=== PATIENT | female | born 1980 | race Caucasian/White ===

== ENCOUNTER 2018-05-04 14:28 | Inpatient (IN) ==
[2018-05-04] MEDS ORDERED: Vancomycin Inj 1,000 MG in Sodium Chlor 0.9% Inj 250 ML IV.SIG ONE (15:39)
[2018-05-04] MEDS ORDERED: Ampicillin/Sulbactam Inj 3 GM in Sodium Chloride 0.9% Inj 100 ML IV.SIG ONE (15:39)
[2018-05-04] MEDS ORDERED: Morphine Sulfate Inj 2 MG/ML Vial IV.PUSH ONE (15:39)
[2018-05-04 16:17] LABS: Baso # (Auto) 0.3 th/mm3 (0.0-0.2); Baso % (Auto) 2.6 % (0.0-2.0); Eos # (Auto) 0.2 th/mm3 (0.0-0.4); Eos % (Auto) 1.4 % (0.0-4.0); Hematocrit 42.3 % (35.0-46.0); Hemoglobin 13.9 gm/dL (11.6-15.3); Lymph % (Auto) 27.5 % (9.0-44.0); Mean Corpuscular Hemoglobin 29.4 pg (27.0-34.0); Mean Corpuscular Volume 89.3 fL (80.0-100.0); Mean Platelet Volume 8.3 fL (7.0-11.0); Mono # (Auto) 0.4 th/mm3 (0.0-0.9); Mono % (Auto) 3.3 % (0.0-8.0); Neut # (Auto) 6.9 th/mm3 (1.8-7.7); Neut % (Auto) 65.2 % (16.0-70.0); Platelet Count 334 th/mm3 (150-450); Red Blood Count 4.74 mil/mm3 (4.00-5.30); Red Cell Distribution Width 13.7 % (11.6-17.2); White Blood Count 10.8 th/mm3 (4.0-11.0)
[2018-05-04 16:21] LABS: Chloride 104 meq/L (98-107); Sodium 137 meq/L (136-145)
[2018-05-04 16:24] LABS: Albumin 2.9 g/dL (3.4-5.0); Anion Gap 6 meq/L (5-15); Blood Urea Nitrogen 5 mg/dL (7-18); Calcium 8.3 mg/dL (8.5-10.1); Carbon Dioxide 27.5 meq/L (21.0-32.0); Glucose,Random 84 mg/dL (74-106)
[2018-05-04 16:27] LABS: Alanine Aminotransferase 13 U/L (10-53); Aspartate Aminotransferase 20 U/L (15-37)
[2018-05-04 16:28] LABS: Glomerular Filtration Rate Greater Than 89 mL/min (>89)
[2018-05-04 16:29] LABS: Total Protein 7.6 g/dL (6.4-8.2)
[2018-05-04 16:30] LABS: Alkaline Phosphatase 110 U/L (45-117)
[2018-05-04 16:59] LABS: Platelet Estimate Normal (Normal); Platelet Morphology Normal (Normal)
--- NOTE | 2018-05-04 17:02 | CT ---
EXAM DATE: 05/04/2018 4:49 PM EST AGE/SEX: 37 years / Female INDICATIONS: Dog bite to left wrist area with redness, pain and swelling up arm. CLINICAL DATA: This is the patient's initial encounter. Patient reports that signs and symptoms have been present for 3 days and indicates a pain score of 8/10. MEDICAL/SURGICAL HISTORY: None. Cholecystectomy. Back surgery. RADIATION DOSE: 12.38 CTDI (mGy) COMPARISON: [facility] [place], HAND LEFT COMPLETE ([id number]), 01/29/2013. . TECHNIQUE: Multiple contiguous axial images were acquired using a multirow detector CT scanner after intravenous administration of 95 ml Omnipaque 350 (iohexol) nonionic water-soluble contrast as a si ngle exam dose. . Multiplanar reconstruction was performed in the sagittal and coronal planes. Usin g automated exposure control and adjustment of the mA and/or kV according to patient size, radiation dose was kept as low as reasonably achievable to obtain optimal diagnostic quality images. DICOM for mat image data is available electronically for review and comparison. FINDINGS: Bones: Focal lucent defects are noted involving the distal radius which likely represent defects from previous hardware. If the patient has had no previous hardware in the radius these could represent p ost-traumatic defects. The bony structures about the wrist are in normal alignment. The distal radiu s, distal ulna and carpus are intact. No fracture is seen. Joints: No significant arthropathy or bony hypertrophy is seen. Soft Tissues: Diffuse soft tissue swelling is noted along the dorsum of the left wrist. No deep soft tissue abscess is noted. No radiopaque foreign body is noted. Other: No foreign bodies seen. Post Contrast: No abnormal areas of enhancement are seen in the marrow or soft tissues. CONCLUSION: 1. Diffuse soft tissue swelling along the dorsum of the left wrist suggesting cellulitis. No underl hong deep soft tissue abscess is noted. 2. Focal lucent defects are noted involving the distal radius which likely represent defects from pr evious hardware. If the patient has had no previous hardware in the radius these could represent post -traumatic defects. Electronically signed by: Jose Joseph MD Board Certified Radiologist 05/04/2018 5:01 PM EST
--- NOTE | 2018-05-04 17:21 | ED ---
HPI General Chief complaint: Animal Bite Stated complaint: Dog Bite Time Seen by Provider: 05/04/18 15:00 Source: patient Mode of arrival: ambulatory Limitations: no limitations History of Present Illness HPI narrative: Patient is a 37 year old female who comes in complaining of pain and swelling to her left wrist and arm after a dog bite. She says she was breaking up a fight between her two dogs over a bone when they bit her. This happened about 4 days ago. She says since then her wrist has become more swollen and painful. She has taken Ibuprofen for pain without relief. She says that she normally takes "Lortab and Oxycodone for pain" but has not been to her doctor this month for a refill of her medications. She denies fever or chills. She has severe pain with movement of her wrist. Severity is moderate. Related Data Home Medications Medication Instructions Recorded Confirmed hydrocodone-acetaminophen 2 tab PO Q6-8H PRN 05/04/18 05/04/18 oxycodone 10 mg PO Q4-6H PRN 05/04/18 05/04/18 Allergies Allergy/AdvReac Type Severity Reaction Status Date / Time No Known Allergies Allergy Verified 05/04/18 14:42 Review of Systems ROS: all other systems reviewed are negative Constitutional Denies chills and Denies fever(s) ENT Denies dizziness Cardiovascular Denies chest pain Respiratory Denies dyspnea Gastrointestinal Denies nausea and Denies vomiting Musculoskeletal Reports arthralgias Integumentary/Breasts Reports change in pigmentation and Reports wounds Neurologic Denies focal weakness and Denies numbness [facility] Medical History Medical History Chronic pain (Acute) Depression (Acute) Surgical History Surgical History History of back surgery (Acute) Hx of cholecystectomy (Acute) Social History Social History Substance History: No History of Abuse Second Hand Smoke Exposure: Yes Smoking Status: Current every day smoker Tobacco Type: Cigarettes How Often Do You Have a Drink Containing Alcohol: Monthly or less Recent Travel in [facility] within the Last 8 Weeks: No Recent Out of Country Travel within the Last 8 Weeks: No Immunization History Tetanus Immunization: <5 Years Exam Narrative Exam Narrative: GENERAL: Awake and alert, in no acute distress. SKIN: Erythema extending circumferentially from the mid hand to the mid- forearm. There are several wounds near the wrist. No defined abscess. HEAD: Atraumatic. Normocephalic. EYES: Pupils equal and round. No scleral icterus. No injection or drainage. ENT: No nasal bleeding or discharge. Mucous membranes pink and moist. NECK: Trachea midline. No JVD. CARDIOVASCULAR: Regular rate and rhythm. No murmur appreciated. RESPIRATORY: No accessory muscle use. Clear to auscultation. Breath sounds equal bilaterally. MUSCULOSKELETAL: No obvious deformities. No clubbing. No cyanosis. No edema. NEUROLOGICAL: Awake and alert. No obvious cranial nerve deficits. Motor grossly within normal limits. Normal speech. PSYCHIATRIC: Appropriate mood and affect; insight and judgment normal. Course Initial Documented Vital Signs Temperature 97.5 F L 05/04/18 14:39 Pulse Rate 89 05/04/18 14:39 Respiratory Rate 16 05/04/18 14:39 Blood Pressure 114/72 05/04/18 14:39 Pulse Oximetry 98 05/04/18 14:39 Last Documented Vital Signs Temperature 97.5 F L 05/04/18 14:39 Pulse Rate 84 05/04/18 16:44 Respiratory Rate 18 05/04/18 16:44 Blood Pressure 118/64 05/04/18 16:44 Pulse Oximetry 98 05/04/18 16:44 Medical Decision Making [facility] Narrative Medical decision making narrative: Patient is a 37-year-old female who comes in complaining of pain and swelling to her left from a dog bite. Exam shows circumferential swelling and erythema from the mid hand to the mid forearm. IV established, labs sent. CT performed shows extensive soft tissue swelling and cellulitis, no defined abscess. Patient given vancomycin and Unasyn. Given pain medicine. I feel she would benefit from observation to ensure improvement of her symptoms. Medical Screen Exam Complete: Yes Emergency Medical Condition: Yes Differential Diagnosis Differential Diagnosis: Cellulitis versus abscess versus sepsis Medical Records Medical records reviewed: Yes I reviewed the patient's medical records. Lab Data Lab results reviewed: Yes I reviewed the patient's lab results. Result diagrams: 05/04/18 15:50 05/04/18 15:50 POC Results POC Urine Results Negative Lab Results 05/04/18 05/04/18 Range/Units 15:50 15:50 CBC w Diff Slide review pending WBC 10.8 (4.0-11.0) th/mm3 RBC 4.74 (4.00-5.30) mil/mm3 Hgb 13.9 (11.6-15.3) gm/dL Hct 42.3 (35.0-46.0) % MCV 89.3 (80.0-100.0) fL MCH 29.4 (27.0-34.0) pg MCHC 33.0 (32.0-36.0) % RDW 13.7 (11.6-17.2) % Plt Count 334 (150-450) th/mm3 MPV 8.3 (7.0-11.0) fL Neut % (Auto) 65.2 (16.0-70.0) % Lymph % (Auto) 27.5 (9.0-44.0) % Burt % (Auto) 3.3 (0.0-8.0) % Eos % (Auto) 1.4 (0.0-4.0) % Baso % (Auto) 2.6 H (0.0-2.0) % Neut # (Auto) 6.9 (1.8-7.7) th/mm3 Lymph # (Auto) 3.0 (1.0-4.8) th/mm3 Burt # (Auto) 0.4 (0.0-0.9) th/mm3 Eos # (Auto) 0.2 (0.0-0.4) th/mm3 Baso # (Auto) 0.3 H (0.0-0.2) th/mm3 WBC Differential . Diff Scan Auto diff confirmed Differential Comment . Platelet Estimate Normal (Normal) Platelet Morphology Normal (Normal) Sodium 137 (136-145) meq/L Potassium 4.0 (3.5-5.1) meq/L Chloride 104 (98-107) meq/L Carbon Dioxide 27.5 (21.0-32.0) meq/L Anion Gap 6 (5-15) meq/L BUN 5 L (7-18) mg/dL Creatinine 0.72 (0.50-1.00) mg/dL Estimated GFR Greater than 89 (>89) mL/min Random Glucose 84 (74-106) mg/dL Calcium 8.3 L (8.5-10.1) mg/dL Total Bilirubin 0.4 (0.2-1.0) mg/dL AST 20 (15-37) U/L ALT 13 (10-53) U/L Alkaline Phosphatase 110 (45-117) U/L Total Protein 7.6 (6.4-8.2) g/dL Albumin 2.9 L (3.4-5.0) g/dL Imaging Data Radiologist's impression: Wrist CT 05/04/18 15:39 CONCLUSION: 1. Diffuse soft tissue swelling along the dorsum of the left wrist suggesting cellulitis. No underlying deep soft tissue abscess is noted. 2. Focal lucent defects are noted involving the distal radius which likely represent defects from previous hardware. If the patient has had no previous hardware in the radius these could represent post-traumatic defects. Discharge Plan Discharge Disposition Patient Disposition: ED Admit(ED Internal Use Only) Discharge Condition Condition: Stable Discharge Details Diagnosis: Cellulitis Physicians Team ED Provider: Kira Hightower Primary Care Provider: NON STAFF,PROVIDER Rxs /Orders / Referrals /Forms Prescriptions: No Action hydrocodone-acetaminophen 10-325 mg Tablet 2 tab PO Q6-8H PRN (Reason: Pain) RF: 0 oxycodone 10 mg Tablet 10 mg PO Q4-6H PRN (Reason: Pain) RF: 0 Discharge Interventions Interventions: Vital Signs Last Done: 05/04/18 16:44 Status ED Status: With Doctor
[2018-05-04] MEDS ORDERED: Bisacodyl 10 MG Supp RECTAL PRN (17:43)
[2018-05-04] MEDS ORDERED: Acetaminophen 325 MG Tablet PO PRN (17:43)
[2018-05-04] MEDS ORDERED: Naloxone Inj 0.4 MG/ML Vial IV.PUSH PRN (17:55)
--- NOTE | 2018-05-04 18:05 | P.HPIM ---
History of Present Illness Primary Care Physician: PROVIDER NON STAFF Chief Complaint: Lt forearm/hand swelling after dog bite History of Present Illness: 37 yo F with h/o previous back surgery who presented with lt hand/forearm swelling and redness after dog bite that happened 4 days ago. Patient was her dogs who were fighting and one of them bit her on the left forearm and leg. She did not seek medical attention because she was trying to control her pain at home. She noted increasing redness in the lt forearm and hand.Also reports excruciating pain, as such she cannot put her arm down. Has been having fever and chills as well. Her left leg also suffered a bite, but not deep and is minimally swollen. Her dogs are all up to date with vaccinations. ROS is negative except as stated above. On presentation to ER,patient had stable vitals, labs unremarkable, CT of left arm noted cellulitis without abscess formation. Patient received Vanc/Unaysn, Hydrocodone and Morphine. Patient was still c/o of pain at the time of this clinical evaluation. Review of Systems Review of Systems: all other systems reviewed are negative [facility] Medical History Medical History Chronic pain (Acute) Depression (Acute) Surgical History Surgical History History of back surgery (Acute) Hx of cholecystectomy (Acute) Social History Social History Substance History: No History of Abuse Second Hand Smoke Exposure: Yes Smoking Status: Current every day smoker Tobacco Type: Cigarettes How Often Do You Have a Drink Containing Alcohol: Monthly or less Recent Travel in [facility] within the Last 8 Weeks: No Recent Out of Country Travel within the Last 8 Weeks: No Immunization History Tetanus Immunization: <5 Years Medications and Allergies Allergies Allergy/AdvReac Type Severity Reaction Status Date / Time No Known Allergies Allergy Verified 05/04/18 14:42 Home Medications Medication Instructions Recorded Confirmed Type hydrocodone-acetaminophen 2 tab PO Q6-8H PRN 05/04/18 05/04/18 History oxycodone 10 mg PO Q4-6H PRN 05/04/18 05/04/18 History Active Medications: Active Medications Acetaminophen (Tylenol) 650 mg PO Q4H PRN PRN Reason: Temp > 100.4 Al Hydroxide/Mg Hydroxide (Milk Of Magnesia Liq) 30 ml PO Q12H PRN PRN Reason: Mild Constipation Bisacodyl (Dulcolax Supp) 10 mg RECTAL DAILY PRN PRN Reason: SEVERE CONSITIPATION Lactulose (Lactulose Liq) 30 ml PO DAILY PRN PRN Reason: SEVERE CONSITIPATION Ondansetron HCl (Zofran Inj) 4 mg IV.PUSH Q6H PRN PRN Reason: NAUSEA OR VOMITING Senna/Docusate Sodium (Katy-Colace) 1 tab PO BID VARUN Sennosides (Senokot) 17.2 mg PO Q12H PRN PRN Reason: Moderate Constipation Sodium Chloride (Ns Flush) 2 ml IV.FLUSH BID VARUN Sodium Chloride (Ns Flush) 2 ml IV.FLUSH PRN PRN PRN Reason: FLUSH AFTER USING IV ACCESS Physical Exam Vital signs: Last Vital Signs Temp 97.5 F L 05/04/18 14:39 Pulse 84 05/04/18 16:44 Resp 18 05/04/18 16:44 BP 118/64 05/04/18 16:44 Pulse Ox 98 05/04/18 16:44 Intake & Output 05/02/18 05/03/18 05/04/18 05/05/18 06:59 06:59 06:59 06:59 Weight 80.6 kg Narrative: GENERAL: This is a well-nourished, well-developed patient, in no apparent distress. HEENT:not pale,anicteric CARDIOVASCULAR: Regular rate and rhythm without murmurs, gallops, or rubs. RESPIRATORY: Clear to auscultation. Breath sounds equal bilaterally. No wheezes , rales, or rhonchi. GASTROINTESTINAL: Abdomen soft, non-tender, nondistended. Normal active bowel sounds MUSCULOSKELETAL: Extremities without clubbing, cyanosis, or edema. Lt arm and hand with swelling and erythema extending to mid forearm, bite farah noted on forearm, tenderness to palpation. limited ROM due to pain. minimal lt leg edema , bite dinorah noted on rios. left leg non tender. NEURO: Alert & Oriented x4 to person, place, time, situation. Moves all ext x4 Results Labs CBC & Chem 7: 05/04/18 15:50 05/04/18 15:[address] 05/04/18 15:39 CONCLUSION: 1. Diffuse soft tissue swelling along the dorsum of the left wrist suggesting cellulitis. No underlying deep soft tissue abscess is noted. 2. Focal lucent defects are noted involving the distal radius which likely represent defects from previous hardware. If the patient has had no previous hardware in the radius these could represent post-traumatic defects. Caprini VTE Risk Assessment Caprini VTE Risk Assessment: No/Low Risk (score <= 1) Caprini Risk Assessment Model: Point Value = 1 Point Value = 2 Point Value = 3 Point Value = 5 Age 41-60 Minor surgery BMI > 25 kg/m2 Swollen legs Varicose veins or History of unexplained or recurrent spontaneous Oral contraceptives or hormone replacement Sepsis (< 1 month) Serious lung disease, including pneumonia (< 1 month) Abnormal pulmonary function Acute myocardial infarction Congestive heart failure (< 1 month) History of inflammatory bowel disease Medical patient at bed rest Age 61-74 Arthroscopic surgery Major open surgery (> 45 min) Laparoscopic surgery (> 45 min) Malignancy Confined to bed (> 72 hours) Immobilizing plaster cast Central venous access Age >= 75 History of VTE Family history of VTE Factor V Leiden Prothrombin [id number] Lupus anticoagulant Anticardiolipin antibodies Elevated serum homocysteine Heparin-induced thrombocytopenia Other congenital or acquired thrombophilia Stroke (< 1 month) Elective arthroplasty Hip, pelvis, or leg fracture Acute spinal cord injury (< 1 month) Prophylaxis Regimen: Total Risk Factor Score Risk Level Prophylaxis Regimen 0-1 Low Early ambulation 2 Moderate Order ONE of the following: *Sequential Compression Device (SCD) *Heparin 5000 units SQ BID 3-4 Higher Order ONE of the following medications: *Heparin 5000 units SQ TID *Enoxaparin/Lovenox 40 mg SQ daily (WT < 150 kg, CrCl > 30 mL/min) *Enoxaparin/Lovenox 30 mg SQ daily (WT < 150 kg, CrCl > 10-29 mL/min) *Enoxaparin/Lovenox 30 mg SQ BID (WT < 150 kg, CrCl > 30 mL/min) AND/OR *Sequential Compression Device (SCD) 5 or more Highest Order ONE of the following medications: *Heparin 5000 units SQ TID (Preferred with Epidurals) *Enoxaparin/Lovenox 40 mg SQ daily (WT < 150 kg, CrCl > 30 mL/min) *Enoxaparin/Lovenox 30 mg SQ daily (WT < 150 kg, CrCl > 10-29 mL/min) *Enoxaparin/Lovenox 30 mg SQ BID (WT < 150 kg, CrCl > 30 mL/min) AND *Sequential Compression Device (SCD) Assessment and Plan Plan 37 yo F with h/o previous back surgery presenting with lt forearm and hand cellulitis following a dog bite. -received Unasyn and Vanc in ER, will continue same for now. -pain control-She is on Oxycontin 30mg q12h, and Hydrocodone/ APAP 10/325mg q6h at home-this was confirmed in [facility], resume same. -Add Dilaudid 1mg prn breakthrough pain. follow up blood cultures. DVT ppx--low risk, ambulate
[2018-05-04] MEDS: HYDROmorphone PF Inj 1 MG/ML Ampul IV.PUSH PRN (20:37)
[2018-05-04] MEDS: Senna/Docusate Sodium 8.6/50 MG Tablet PO SCH (22:30)
[2018-05-04] MEDS: Ampicillin/Sulbactam Inj 3 GM in Sodium Chloride 0.9% Inj 100 ML IV.SIG SCH (23:58)
[2018-05-04] MEDS: oxyCODONE 10 MG Controlled Release Tablet PO SCH (23:59)
[2018-05-05] MEDS: HYDROmorphone PF Inj 1 MG/ML Ampul IV.PUSH PRN ×7 (04:44→23:53)
[2018-05-05] MEDS: Ampicillin/Sulbactam Inj 3 GM in Sodium Chloride 0.9% Inj 100 ML IV.SIG SCH ×3 (05:01→17:35)
[2018-05-05] MEDS: Senna/Docusate Sodium 8.6/50 MG Tablet PO SCH ×2 (08:06→20:36)
[2018-05-05] MEDS: oxyCODONE 10 MG Controlled Release Tablet PO SCH ×2 (08:06→20:36)
--- NOTE | 2018-05-05 08:53 | P.PNIM ---
Subjective Interval history: Follow-up left hand cellulitis. left hand pain about the same, no change, no overnight events, still very painful, about 9/10. No fever chills. Physical Exam Vital signs: Last Vital Signs Temp 97.3 F L 05/05/18 08:00 Pulse 70 05/05/18 08:00 Resp 18 05/05/18 08:00 BP 97/60 L 05/05/18 08:00 Pulse Ox 97 05/05/18 08:00 Intake & Output 05/03/18 05/04/18 05/05/18 05/06/18 06:59 06:59 06:59 06:59 Intake Total 550 / 550 Balance 550 / 550 Weight 83.5 kg Narrative: GENERAL: Not in distress. CARDIOVASCULAR: Regular rate and rhythm without murmurs, gallops, or rubs. RESPIRATORY: Clear to auscultation. Breath sounds equal bilaterally. No wheezes , rales, or rhonchi. GASTROINTESTINAL: Abdomen soft, non-tender, nondistended. Normal active bowel sounds MUSCULOSKELETAL: Extremities without clubbing, cyanosis, or edema. Lt arm and hand with swelling and erythema extending to mid forearm, bite farah noted on forearm, tenderness to palpation. limited ROM due to pain. minimal lt leg edema , bite dinorah noted on rios. left leg non tender. NEURO: Alert & Oriented x4 to person, place, time, situation. Moves all ext x4 Results Labs CBC & Chem 7: 05/04/18 15:50 05/04/18 15:50 Imaging Imaging: Impressions Wrist CT 05/04/18 15:39 CONCLUSION: 1. Diffuse soft tissue swelling along the dorsum of the left wrist suggesting cellulitis. No underlying deep soft tissue abscess is noted. 2. Focal lucent defects are noted involving the distal radius which likely represent defects from previous hardware. If the patient has had no previous hardware in the radius these could represent post-traumatic defects. Assessment and Plan Plan 37 yo F with h/o previous back surgery presenting with lt forearm and hand cellulitis following a dog bite. Left hand cellulitis secondary to dog bite-continue Unasyn and vancomycin, monitor BMP daily, continue home dose of OxyContin, [place] as needed, will add ibuprofen [id number] for swelling. -Tinea vancomycin and Unasyn (05/04-). CT scan of the wrist did not show any abscess. Blood cultures negative so far. DVT ppx--low risk, ambulate Progress Note: Quality VTE Deep Vein Thrombosis/Pulmonary Embolism Present on Admission: No
[2018-05-05] MEDS ORDERED: Vancomycin Consult Pharmacy OTHER PRN (09:48)
[2018-05-05] MEDS ORDERED: Vancomycin Inj 1,000 MG in Sodium Chlor 0.9% Inj 250 ML IV.SIG SCH (09:48)
[2018-05-05] MEDS: Ibuprofen 600 MG Tablet PO SCH (10:28)
[2018-05-05] MEDS: Vancomycin Inj 1,000 MG in Sodium Chlor 0.9% Inj 250 ML IV.SIG SCH (23:57)
[2018-05-06] MEDS: Ampicillin/Sulbactam Inj 3 GM in Sodium Chloride 0.9% Inj 100 ML IV.SIG SCH ×5 (01:13→23:09)
[2018-05-06] MEDS: HYDROmorphone PF Inj 1 MG/ML Ampul IV.PUSH PRN ×3 (02:43→08:45)
[2018-05-06 08:37] LABS: Chloride 105 meq/L (98-107); Potassium 3.4 meq/L (3.5-5.1); Sodium 141 meq/L (136-145)
[2018-05-06 08:40] LABS: Glucose,Random 98 mg/dL (74-106)
[2018-05-06 08:41] LABS: Anion Gap 6 meq/L (5-15); Blood Urea Nitrogen 7 mg/dL (7-18); Carbon Dioxide 29.7 meq/L (21.0-32.0)
[2018-05-06] MEDS: Senna/Docusate Sodium 8.6/50 MG Tablet PO SCH ×2 (08:41→20:51)
[2018-05-06] MEDS: oxyCODONE 10 MG Controlled Release Tablet PO SCH ×2 (08:41→20:49)
[2018-05-06 08:44] LABS: Glomerular Filtration Rate Greater Than 89 mL/min (>89)
--- NOTE | 2018-05-06 11:03 | P.PNIM ---
Subjective Interval history: Left hand pain still very swollen, pain is severe, about 9/10 , decreased range of motion, no fever, positive for chills. Blood pressure stable. Physical Exam Vital signs: Last Vital Signs Temp 96.4 F L 05/06/18 08:00 Pulse 67 05/06/18 08:00 Resp 15 05/06/18 08:00 BP 92/54 L 05/06/18 08:00 Pulse Ox 97 05/06/18 08:00 Intake & Output 05/04/18 05/05/18 05/06/18 05/07/18 06:59 06:59 06:59 06:59 Intake Total 550 / 550 1999 Balance 550 / 550 1999 Weight 83.5 kg Narrative: GENERAL: Not in distress. CARDIOVASCULAR: Regular rate and rhythm without murmurs, gallops, or rubs. RESPIRATORY: Clear to auscultation. Breath sounds equal bilaterally. GASTROINTESTINAL: Abdomen soft, non-tender, nondistended. Normal active bowel sounds MUSCULOSKELETAL: Extremities without clubbing, cyanosis, or edema. Lt arm and hand with swelling and erythema extending to mid forearm, bite farah noted on forearm, tenderness to palpation. limited left hand abduction, severe tenderness. NEURO: Alert & Oriented x4 to person, place, time, situation. Moves all ext x4 Results Labs CBC & Chem 7: 05/04/18 15:50 05/06/18 07:10 Labs: Microbiology 05/04/18 15:55 Blood - Peripheral Aerobic Blood Culture - Preliminary No growth in 1 day 05/04/18 15:55 Blood - Peripheral Anaerobic Blood Culture - Preliminary No growth in 1 day 05/04/18 15:50 Blood - Peripheral Aerobic Blood Culture - Preliminary No growth in 1 day 05/04/18 15:50 Blood - Peripheral Anaerobic Blood Culture - Preliminary No growth in 1 day Assessment and Plan Plan 37 yo F with h/o previous back surgery presenting with lt forearm and hand cellulitis following a dog bite. Left hand cellulitis secondary to dog bite-continue Unasyn and vancomycin, continue home dose of OxyContin, [place] as needed, ibuprofen [id number], add Dilaudid as needed orally. CT scan of the wrist did not show any abscess. No improvement with antibiotics for 48 hours, consult hand surgery. Per kalemia-replace orally, check magnesium DVT ppx--low risk, ambulate Progress Note: Quality VTE Deep Vein Thrombosis/Pulmonary Embolism Present on Admission: No
[2018-05-06] MEDS: Vancomycin Inj 1,000 MG in Sodium Chlor 0.9% Inj 250 ML IV.SIG SCH ×2 (11:43→23:08)
[2018-05-06] MEDS: Ibuprofen 600 MG Tablet PO SCH ×4 (11:43→21:42)
[2018-05-06 13:27] LABS: Baso % (Auto) 0.5 % (0.0-2.0); Eos # (Auto) 0.2 th/mm3 (0.0-0.4); Eos % (Auto) 2.6 % (0.0-4.0); Hematocrit 33.2 % (35.0-46.0); Hemoglobin 11.2 gm/dL (11.6-15.3); Lymph # (Auto) 2.8 th/mm3 (1.0-4.8); Lymph % (Auto) 36.4 % (9.0-44.0); Mean Corpuscular HGB Conc 33.8 % (32.0-36.0); Mean Corpuscular Hemoglobin 30.3 pg (27.0-34.0); Mean Corpuscular Volume 89.7 fL (80.0-100.0); Mean Platelet Volume 8.7 fL (7.0-11.0); Mono # (Auto) 0.4 th/mm3 (0.0-0.9); Mono % (Auto) 5.3 % (0.0-8.0); Neut # (Auto) 4.4 th/mm3 (1.8-7.7); Neut % (Auto) 55.2 % (16.0-70.0); Platelet Count 279 th/mm3 (150-450); White Blood Count 7.8 th/mm3 (4.0-11.0)
--- NOTE | 2018-05-06 13:58 | MB ---
cc: Kaya Diamond MD DATE: 05/06/2018 The patient is being seen at the request of Dr. Montserrat Badillo. REASON FOR CONSULTATION: Injury to left hand after a dog bite. HISTORY OF PRESENT ILLNESS: The patient is a 37-year-old female with a history of back surgery, who presented with left hand and forearm swelling and redness after a dog bite. The patient was bitten approximately 5 days ago. The 2 dogs were fighting and she them. The dog that bit her was a combination of Labrador Retriever and a Johnson. The dog grabbed her arm and did not let go at first. The patient has noted that she had been having fevers and chills. She also suffered a bite to her leg. The patient was seen in the emergency room and was admitted for intravenous antibiotics. A CT scan of the left upper extremity revealed some fractures, which may be related to the teeth from the dog on the dorsal and palmar surface of the distal radius. These are coincident with the teeth. Consultation is requested regarding evaluation and treatment of the patient's hand injury. REVIEW OF SYSTEMS: Twelve systems are reviewed and they are all negative. PAST MEDICAL HISTORY: Negative for high blood pressure, diabetes, heart disease, kidney disease, liver disease, or diseases of infectious etiology. PAST SURGICAL HISTORY: Significant for chronic pain secondary to the back surgery and depression. The patient has a history of surgical as above plus cholecystectomy. SOCIAL HISTORY: The patient smokes cigarettes every day. Does not consume significant amount of alcohol. PHYSICAL EXAMINATION: GENERAL: The patient is lying comfortably in bed. VITAL SIGNS: Temperature is 96.4, pulse is 67, respirations 15, blood pressure is 92/54, and pulse oximetry is 97 on room air. HEENT: Her extraocular muscles are intact. Pupils are equal, round, and reactive to light. Her mouth is clear. NECK: Supple without masses. LUNGS: Clear. HEART: Regular rate and rhythm. EXTREMITIES: Examination of upper extremities reveals mild swelling of her left upper extremity. There is redness over the dorsal aspect of her wrist. The palmar surface is not red or swollen. There is a scrape type bite puncture laceration approximately 1.5 cm in length dorsally as well as a puncture wound on the radial aspect of the wrist. These punctures are just proximal to the radiocarpal joint. The patient is able to supinate and pronate her wrist. She can extend and flex, although she does complain of some discomfort. The extremity from the elbow to the fingertips is tender all over. That includes the fingers, the volar and dorsal surface of the wrist and forearm. The tenderness is the same throughout. REVIEW OF THE PATIENT'S LABORATORY DATA: White count was 10.8 on admission and there was no evidence of a shift. Her chemistry showed a slightly lower potassium, but otherwise is relatively within normal limits. The wounds have not been cultured. A blood culture x2 is negative. Review of her CT scan shows 2 possible fractures into the substance of the bone and the distal radius coincident with the areas of the bites. IMPRESSION: The patient appears to have a cellulitis of her left upper extremity. She does have moderate swelling of the upper extremity. The pain does appear to be greater than the clinical picture. PLAN: The fractures within the distal radius are of concern and orthopedics should be consulted regarding further treatment. I do not feel that the patient has an infection within the wrist joint and that the injury is localized to the soft tissue as well as distal radius. MD SUZIE Hernandez/elfego , 12:59 PM , 01:11 PM
--- NOTE | 2018-05-06 13:59 | XR ---
EXAM DATE: 05/06/2018 1:52 PM EST AGE/SEX: 37 years / Female INDICATIONS: Dog bite to left wrist. Evaluate for fracture. CLINICAL DATA: This is the patient's subsequent encounter. Patient reports that signs and symptoms h ave been present for 2 days and indicates a pain score of 10/10. MEDICAL/SURGICAL HISTORY: None. None. COMPARISON: [facility] – [place], HAND LEFT COMPLETE ([id number]), 01/29/2013. . FINDINGS: There is extensive soft tissue swelling seen fistula. There is some stable subtle lucency seen at the lateral radial metaphyseal region. There appears to be a linear bony density seen projecting adjacen t to the lateral radial metaphyseal region raising possibility of fracture in this region. CONCLUSION: Possible fracture at the distal radial metaphyseal region. Extensive superficial soft tissue swelling. Electronically signed by: Mario Vasquez MD Board Certified Radiologist 05/06/2018 1:57 PM EST
[2018-05-06] MEDS ORDERED: Pharmacy Ordered Lab Info OTHER ONE (22:45)
[2018-05-06] MEDS: Duloxetine 60 MG DR Capsule PO SCH (23:36)
[2018-05-07 03:51] LABS: Vancomycin,Trough 5.1 mcg/mL (5.0-10.0)
[2018-05-07] MEDS: Ibuprofen 600 MG Tablet PO SCH ×3 (06:38→21:59)
[2018-05-07] MEDS: Ampicillin/Sulbactam Inj 3 GM in Sodium Chloride 0.9% Inj 100 ML IV.SIG SCH ×4 (06:41→23:32)
[2018-05-07 06:46] LABS: Baso # (Auto) 0.1 th/mm3 (0.0-0.2); Baso % (Auto) 0.8 % (0.0-2.0); Eos # (Auto) 0.4 th/mm3 (0.0-0.4); Hematocrit 33.6 % (35.0-46.0); Hemoglobin 11.2 gm/dL (11.6-15.3); Lymph # (Auto) 3.2 th/mm3 (1.0-4.8); Lymph % (Auto) 45.8 % (9.0-44.0); Mean Corpuscular HGB Conc 33.4 % (32.0-36.0); Mean Corpuscular Volume 89.8 fL (80.0-100.0); Mean Platelet Volume 8.4 fL (7.0-11.0); Mono # (Auto) 0.4 th/mm3 (0.0-0.9); Mono % (Auto) 5.5 % (0.0-8.0); Neut # (Auto) 2.9 th/mm3 (1.8-7.7); Neut % (Auto) 41.9 % (16.0-70.0); Platelet Count 287 th/mm3 (150-450); Red Blood Count 3.74 mil/mm3 (4.00-5.30); Red Cell Distribution Width 13.2 % (11.6-17.2)
[2018-05-07 06:57] LABS: Chloride 107 meq/L (98-107); Potassium 3.9 meq/L (3.5-5.1); Sodium 141 meq/L (136-145)
[2018-05-07 07:02] LABS: Calcium 8.4 mg/dL (8.5-10.1)
[2018-05-07 07:03] LABS: Anion Gap 5 meq/L (5-15); Blood Urea Nitrogen 7 mg/dL (7-18); Carbon Dioxide 29.5 meq/L (21.0-32.0); Glucose,Random 96 mg/dL (74-106)
[2018-05-07 07:06] LABS: Glomerular Filtration Rate Greater Than 89 mL/min (>89)
[2018-05-07] MEDS ORDERED: LORazepam 1 MG Tablet PO ONE (08:15)
[2018-05-07] MEDS: Duloxetine 60 MG DR Capsule PO SCH (08:18)
[2018-05-07] MEDS: Senna/Docusate Sodium 8.6/50 MG Tablet PO SCH ×2 (08:18→21:59)
[2018-05-07] MEDS: oxyCODONE 10 MG Controlled Release Tablet PO SCH ×2 (08:19→21:59)
--- NOTE | 2018-05-07 08:29 | P.PNIM ---
Subjective Interval history: Patient reports the pain is controlled. Denies any chest pain or shortness of breath. Denies nausea or vomiting. Physical Exam Vital signs: Vital Signs 05/06/18 12:00 05/06/18 13:11 05/06/18 16:00 Temperature 97.7 F 96.6 F L Pulse Rate 91 H 111 H Respiratory Rate 16 4 L 16 Blood Pressure 118/56 L 100/58 L Pulse Oximetry 100 100 05/06/18 20:00 05/06/18 21:20 05/06/18 22:15 Temperature 96.9 F L Pulse Rate 78 Respiratory Rate 20 9 L 18 Blood Pressure 103/55 L Pulse Oximetry 97 05/07/18 02:00 05/07/18 02:30 05/07/18 03:10 Temperature 97.1 F L Pulse Rate 77 Respiratory Rate 16 20 Blood Pressure 89/53 L 101/64 Pulse Oximetry 96 05/07/18 07:07 05/07/18 07:08 05/07/18 07:45 Temperature Pulse Rate Respiratory Rate 18 18 18 Blood Pressure Pulse Oximetry Intake & Output 05/06/18 05/07/18 05/07/18 18:59 06:59 18:59 Intake Total 1909 / 1909 480 / 480 Balance 1909 480 / 480 Weight 83.5 kg 83.4 kg Intake: IV 350 / 350 Unasyn Inj 3 GM In NS Inj 100 100 / 100 ML @ 200 mls/hr IV.SIG Q6H VARUN Rx#:[id number] Vancomycin Inj 1,000 MG In NS 250 / 250 Inj 250 ML @ 250 mls/hr IV.SIG Q12H VARUN Rx#:[id number] Oral 1560 / 1560 480 / 480 Other: # Voids 5 3 Date of Last Bowel Movement 05/04/18 # Bowel Movements 0 Narrative: GENERAL: lying in bed.. Appears comfortable. SKIN: Warm and dry. HEAD: Normocephalic. EYES: No scleral icterus. No injection or drainage. NECK: Supple, trachea midline. No JVD or lymphadenopathy. CARDIOVASCULAR: Regular rate and rhythm without murmurs, gallops, or rubs. RESPIRATORY: Breath sounds equal bilaterally. No accessory muscle use. GASTROINTESTINAL: Abdomen soft, non-tender, nondistended. MUSCULOSKELETAL: No cyanosis, or edema. Left wrist dressed with dressing clean dry and intact. Erythema not extending beyond dressing. BACK: Nontender without obvious deformity. No CVA tenderness. Results - Labs CBC & Chem 7: 05/07/18 06:06 05/07/18 06:06 Laboratory Results - last 24 hr 05/06/18 05/06/18 05/06/18 07:10 07:10 22:30 CBC w Diff Auto diff final WBC 7.8 RBC 3.70 L Hgb 11.2 L D Hct 33.2 L MCV 89.7 MCH 30.3 MCHC 33.8 RDW 13.0 Plt Count 279 MPV 8.7 Neut % (Auto) 55.2 Lymph % (Auto) 36.4 [place] % (Auto) 5.3 Eos % (Auto) 2.6 Baso % (Auto) 0.5 Neut # (Auto) 4.4 Lymph # (Auto) 2.8 [place] # (Auto) 0.4 Eos # (Auto) 0.2 Baso # (Auto) 0.0 WBC Differential . Differential Comment . Sodium 141 Potassium 3.4 L Chloride 105 Carbon Dioxide 29.7 Anion Gap 6 BUN 7 Creatinine 0.65 Estimated GFR Greater than 89 Random Glucose 98 Calcium 8.0 L Magnesium 2.0 Vancomycin Trough 5.1 05/07/18 05/07/18 06:06 06:06 CBC w Diff Auto diff final WBC 7.0 RBC 3.74 L Hgb 11.2 L Hct 33.6 L MCV 89.8 MCH 30.0 MCHC 33.4 RDW 13.2 Plt Count 287 MPV 8.4 Neut % (Auto) 41.9 Lymph % (Auto) 45.8 H [place] % (Auto) 5.5 Eos % (Auto) 6.0 H Baso % (Auto) 0.8 Neut # (Auto) 2.9 Lymph # (Auto) 3.2 [place] # (Auto) 0.4 Eos # (Auto) 0.4 Baso # (Auto) 0.1 WBC Differential . Differential Comment . Sodium 141 Potassium 3.9 Chloride 107 Carbon Dioxide 29.5 Anion Gap 5 BUN 7 Creatinine 0.68 Estimated GFR Greater than 89 Random Glucose 96 Calcium 8.4 L Magnesium Vancomycin Trough Microbiology 05/04/18 15:55 Blood - Peripheral Aerobic Blood Culture - Preliminary No growth in 2 days 05/04/18 15:55 Blood - Peripheral Anaerobic Blood Culture - Preliminary No growth in 2 days 05/04/18 15:50 Blood - Peripheral Aerobic Blood Culture - Preliminary No growth in 2 days 05/04/18 15:50 Blood - Peripheral Anaerobic Blood Culture - Preliminary No growth in 2 days - Imaging Impressions Wrist X-Ray 05/06/18 00:00 CONCLUSION: Possible fracture at the distal radial metaphyseal region. Extensive superficial soft tissue swelling. Assessment and Plan - Plan 37 yo F with h/o previous back surgery presenting with lt forearm and hand cellulitis following a dog bite. //Left hand cellulitis secondary to dog bite-continue Unasyn and vancomycin, continue home dose of OxyContin, [place] as needed, ibuprofen [id number], add Dilaudid as needed orally. CT scan of the wrist did not show any abscess. No improvement with antibiotics for 48 hours, consult hand surgery. = Continue antibiotics. Orthopedics following. MR wrist pending consult ID..appreciate assistance. //hyperkalemia- =-Magnesium within normal limits = Resolved after replacement DVT ppx--low risk, ambulate Discussed Condition With: Patient, nurse. Discharge Planning: when Cleared by orthopedics
[2018-05-07] MEDS ORDERED: Gadobutrol PF 10 MMOL/10 ML Vial (for RAD) IV.SIG ONE (10:02)
--- NOTE | 2018-05-07 10:22 | MR ---
EXAM DATE: 05/07/2018 10:09 AM EST AGE/SEX: 37 years / Female INDICATIONS: . Wound on left wrist from dog bite. Bite is posterior and lateral. CLINICAL DATA: This is the patient's initial encounter. Patient reports that signs and symptoms have been present for 2 days and indicates a pain score of 6/10. MEDICAL/SURGICAL HISTORY: None. Cholecystectomy. Hernia repair, Back sx. COMPARISON: No prior exams available for comparison. TECHNIQUE: Multiplanar, multisequence MRI examination was performed without contrast and after intra venous administration of 9 ml Gadavist (gadobutrol) contrast as a single exam dose. FINDINGS: Marrow: There is abnormal areas of marrow edema along the radial aspect of the radius both along its bursal and follow-up portions. Dorsally the abnormal area of marrow signal begins at the cortex almo st 7 mm across. Anteriorly along the volar radial aspect of the distal radius its almost 8 mm across. Triangular Fibrocartilage Complex: The TFC complex is intact. Intrinsic Carpal Ligaments: The scapholunate and lunotriquetral ligaments are intact. Extensor Tendons: No evidence of tear, displacement, or tenosynovitis in the extensor carpi ulnaris, extensor digiti minimi, extensor digitorum, extensor pollicis longus, extensor carpi radialis brevis , extensor carpi radialis longus, extensor pollicis brevis, and abductor pollicis longus tendons. Carpal Tunnel/Flexor Tendons: The median nerve has a normal size, shape, and signal. The flexor ret inaculum is not thickened or bowed. The flexor tendons are unremarkable. Ulnar Nerve: Normal in course, size, and signal. No evidence of compression at Guyon's canal. Soft Tissues: Superficial to the radial for abnormal area of marrow edema is an irregular collection with some surrounding enhancement measuring 1.3 x 0.7 cm across. The collection is identified (image 9 series 12) and could be a abscess. Superficial to the extensor tendon sheath is a additional collection measuring 1.3 x 0.9 cm. There is a small tract that extends to the area of abnormal bone marrow again could be an abscess. Joints: No evidence of erosion, effusion, or malalignment in the distal radioulnar joint, intercarpa l joints, or carpal-metacarpal joints. Post Contrast: There is marked enhancement around the wrist including the soft tissue surrounding ney th of the suspected areas of abscess and abnormal radial marrow enhancement possible infection. CONCLUSION: 1. There is concerning marrow signal and 2 superficial pockets of nonenhancement concern for soft ti ssue abscess. I don't see definite injury to any of the tendon sheaths and there is no significant en hancement within the tendon sheaths low-grade enhancement of the first dorsal compartment, extensor c arpi ulnaris compartment and the extensor digitorum longus compartments. 2 serpiginous fluid collect ions along the suspected path of the bite are concerning for abscess Electronically signed by: Rubén Loredo MD Board Certified Radiologist 05/07/2018 10:21 AM EST
[2018-05-07] MEDS: Vancomycin Inj 1,000 MG in Sodium Chlor 0.9% Inj 250 ML IV.SIG SCH ×2 (12:26→22:00)
--- NOTE | 2018-05-07 12:53 | P.CONID ---
History of Present Illness Service: ID Consult date: 05/07/18 Requesting Physician: Butch Fields Reason for Consult: sp dog bite L wrist Primary Care Provider: PROVIDER NON STAFF Chief Complaint: Lt forearm/hand swelling after dog bite History of Present Illness: 37 yo F w/o past med history was bitten by her own dog last Sat when she was breaking fight between dogs Dog is up to date on the shots Her bite on the L wrist/forearm was getting worse with increasin swelling, redness, pain Pt did not seek med attention for that matter untill Saturday CT showed fracture at the distal radial metaphyseal region and extensive superficial soft tissue swelling. F/u Wrist MRI from today with concerning marrow signal and 2 superficial pockets of nonenhancement concern for soft tissue abscess. 2 serpiginous fluid collections along the suspected path of the bite are concerning for abscess Pt was started on Unasyn, vamnncomycin and she reports inmprovement in swelling and pain no fever or luekocytosis Review of Systems All other systems reviewed negative except as stated in HPI PMFSH - History History Provided By: Patient - Medical History Medical History: Medical History (Last Reviewed 05/07/18 @ 12:45 by Olena Howard MD) Chronic pain Depression - Surgical History Surgical History: Surgical History (Last Reviewed 05/07/18 @ 12:45 by Olena Howard MD) History of back surgery Hx of cholecystectomy - Family History Family History: Family History (Last Updated 05/07/18 @ 12:45 by Olena Howard MD) Other No pertinent family history - Social History I have reviewed the patient's Social History: Yes - Tobacco History Second Hand Smoke Exposure: Yes Tobacco Use In Past 30 Days: Yes Smoking Status: Current every day smoker Tobacco Type: Cigarettes, E-Cigarettes - Alcohol History How Often Do You Have a Drink Containing Alcohol: Never - Substance Use History Substance History: No History of Abuse - Travel History Recent Travel in the [place] Within the Last 8 Weeks: No Recent Travel Out of the Country Within the Last 8 Weeks: No - Immunization History Tetanus Immunization: <5 Years Medications and Allergies Active Medications: Active Medications Acetaminophen (Tylenol) 650 mg PO Q4H PRN PRN Reason: Temp > 100.4 Hydrocodone Bitart/Acetaminophen ([place] 10/325) 1 tab PO Q4H PRN PRN Reason: PAIN SCALE 1 TO 5 Last Admin: 05/07/18 10:56 Dose: 1 tab Al Hydroxide/Mg Hydroxide (Milk Of Magnesia Liq) 30 ml PO Q12H PRN PRN Reason: Mild Constipation Bisacodyl (Dulcolax Supp) 10 mg RECTAL DAILY PRN PRN Reason: SEVERE CONSITIPATION Duloxetine HCl (Cymbalta) 60 mg PO DAILY [facility] Last Admin: 05/07/18 08:18 Dose: 60 mg Hydromorphone HCl (Dilaudid) 1 mg PO Q6H PRN PRN Reason: PAIN 6-10 Last Admin: 05/07/18 07:15 Dose: 1 mg Ampicillin Sodium/Sulbactam (Sodium 3 gm/ Sodium Chloride) 100 mls @ 200 mls/ hr IV.SIG Q6H [facility] Last Admin: 05/07/18 12:26 Dose: Not Given Vancomycin HCl 1,000 mg/ (Sodium Chloride) 250 mls @ 250 mls/hr IV.SIG Q12H [facility] Last Admin: 05/07/18 12:26 Dose: Not Given Ibuprofen (Motrin) 600 mg PO Q8HR [facility] Last Admin: 05/07/18 06:38 Dose: 600 mg Lactulose (Lactulose Liq) 30 ml PO DAILY PRN PRN Reason: SEVERE CONSITIPATION Naloxone HCl (Narcan Inj) 0.4 mg IV.PUSH UNSCH PRN PRN Reason: SEE LABEL COMMENTS Ondansetron HCl (Zofran Inj) 4 mg IV.PUSH Q6H PRN PRN Reason: NAUSEA OR VOMITING Oxycodone HCl (Oxycontin Cr) 30 mg PO Q12HR [facility] Last Admin: 05/07/18 08:19 Dose: 30 mg Pharmacy Profile Note (Vancomycin Consult Pharmacy) 1 each OTHER UNSCH PRN PRN Reason: Pharmacy to dose Povidone Iodine (Betadine 10% Oint) 1 applicatio TOPICAL DAILY [facility] Last Admin: 05/07/18 08:20 Dose: 1 applicatio Senna/Docusate Sodium (Katy-Colace) 1 tab PO BID [facility] Last Admin: 05/07/18 08:18 Dose: 1 tab Sennosides (Senokot) 17.2 mg PO Q12H PRN PRN Reason: Moderate Constipation Sodium Chloride (Ns Flush) 2 ml IV.FLUSH BID [facility] Last Admin: 05/07/18 08:20 Dose: Not Given Sodium Chloride (Ns Flush) 2 ml IV.FLUSH PRN PRN PRN Reason: FLUSH AFTER USING IV ACCESS Last Admin: 05/05/18 17:32 Dose: 2 ml Allergies Allergy/AdvReac Type Severity Reaction Status Date / Time No Known Allergies Allergy Verified 05/04/18 14:42 Home Medications Medication Instructions Recorded Confirmed Type hydrocodone-acetaminophen 2 tab PO Q6-8H PRN 05/04/18 05/04/18 History oxycodone 10 mg PO Q4-6H PRN 05/04/18 05/04/18 History duloxetine 60 mg PO DAILY 05/05/18 05/05/18 History Exam Vital signs: Vital Signs 05/06/18 13:11 05/06/18 16:00 05/06/18 20:00 Temperature 96.6 F L 96.9 F L Pulse Rate 111 H 78 Respiratory Rate 4 L 16 20 Blood Pressure 100/58 L 103/55 L Pulse Oximetry 100 97 05/06/18 21:20 05/06/18 22:15 05/07/18 02:00 Temperature Pulse Rate Respiratory Rate 9 L 18 16 Blood Pressure Pulse Oximetry 05/07/18 02:30 05/07/18 03:10 05/07/18 07:07 Temperature 97.1 F L Pulse Rate 77 Respiratory Rate 20 18 Blood Pressure 89/53 L 101/64 Pulse Oximetry 96 05/07/18 07:08 05/07/18 07:45 05/07/18 08:00 Temperature 96.8 F L Pulse Rate 78 Respiratory Rate 18 18 18 Blood Pressure 97/60 L Pulse Oximetry 97 05/07/18 08:49 05/07/18 10:56 05/07/18 11:26 Temperature Pulse Rate Respiratory Rate 18 18 18 Blood Pressure Pulse Oximetry 05/07/18 12:00 Temperature 96.1 F L Pulse Rate 67 Respiratory Rate 18 Blood Pressure 84/60 L Pulse Oximetry 99 Intake & Output 05/06/18 05/07/18 05/07/18 18:59 06:59 18:59 Intake Total 1909 480 / 480 Balance 1909 480 / 480 Weight 83.5 kg 83.4 kg Intake: IV 350 / 350 Unasyn Inj 3 GM In NS Inj 100 100 / 100 ML @ 200 mls/hr IV.SIG Q6H VARUN Rx#:[id number] Vancomycin Inj 1,000 MG In NS 250 / 250 Inj 250 ML @ 250 mls/hr IV.SIG Q12H VARUN Rx#:[id number] Oral 1560 / 1560 480 / 480 Other: # Voids 5 3 Date of Last Bowel Movement 05/04/18 05/05/18 # Bowel Movements 0 - Constitutional no acute distress, obese - Routine HEENT Exam Head: Present: normocephalic, atraumatic Eye: Present: EOMI, PERRL. Absent: conjunctival icterus ENT: Present: mucous membranes moist, oropharynx clear - Routine Neck Exam Present: supple. Absent: JVD - Routine Respiratory Exam Present: CTA bilaterally. Absent: decreased breath sounds, rhonchi - Routine Cardiovascular Exam Present: RRR, S1, S2. Absent: murmur, gallop, rubs - Routine Abdominal Exam Present: soft, normoactive bowel sounds. Absent: tenderness, distended - Routine Extremities Exam Absent: cyanosis, clubbing Comments: L lower leg few bite farah - healing nicely w/o e/o infx L distal foream with multiple bitemarks, mild to moderate edema, mild erythema , tender to palpation Serosang drainage - Routine Skin Exam Present: dry, warm. Absent: jaundice, rash - Routine Neurological Exam Present: alert, oriented X3, CN II-XII intact. Absent: sensory deficit, motor deficit - Routine Psychiatric Exam Present: normal affect, cooperative Results - Labs CBC & Chem 7: 05/07/18 06:06 05/07/18 06:06 Labs: Laboratory Results - last 24 hr 05/06/18 05/06/18 05/07/18 07:10 22:30 06:06 CBC w Diff Auto diff final Auto diff final WBC 7.8 7.0 RBC 3.70 L 3.74 L Hgb 11.2 L D 11.2 L Hct 33.2 L 33.6 L MCV 89.7 89.8 MCH 30.3 30.0 MCHC 33.8 33.4 RDW 13.0 13.2 Plt Count 279 287 MPV 8.7 8.4 Neut % (Auto) 55.2 41.9 Lymph % (Auto) 36.4 45.8 H [place] % (Auto) 5.3 5.5 Eos % (Auto) 2.6 6.0 H Baso % (Auto) 0.5 0.8 Neut # (Auto) 4.4 2.9 Lymph # (Auto) 2.8 3.2 [place] # (Auto) 0.4 0.4 Eos # (Auto) 0.2 0.4 Baso # (Auto) 0.0 0.1 WBC Differential . . Differential Comment . . Sodium Potassium Chloride Carbon Dioxide Anion Gap BUN Creatinine Estimated GFR Random Glucose Calcium Magnesium 2.0 Vancomycin Trough 5.1 05/07/18 06:06 CBC w Diff WBC RBC Hgb Hct MCV MCH MCHC RDW Plt Count MPV Neut % (Auto) Lymph % (Auto) [place] % (Auto) Eos % (Auto) Baso % (Auto) Neut # (Auto) Lymph # (Auto) [place] # (Auto) Eos # (Auto) Baso # (Auto) WBC Differential Differential Comment Sodium 141 Potassium 3.9 Chloride 107 Carbon Dioxide 29.5 Anion Gap 5 BUN 7 Creatinine 0.68 Estimated GFR Greater than 89 Random Glucose 96 Calcium 8.4 L Magnesium Vancomycin Trough - Imaging Impressions Wrist X-Ray 05/06/18 00:00 CONCLUSION: Possible fracture at the distal radial metaphyseal region. Extensive superficial soft tissue swelling. Wrist MRI 05/07/18 00:00 CONCLUSION: 1. There is concerning marrow signal and 2 superficial pockets of nonenhancement concern for soft tissue abscess. I don't see definite injury to any of the tendon sheaths and there is no significant enhancement within the tendon sheaths low-grade enhancement of the first dorsal compartment, extensor carpi ulnaris compartment and the extensor digitorum longus compartments. 2 serpiginous fluid collections along the suspected path of the bite are concerning for abscess Assessment and Plan - Plan Sp dog bite to L forearm, penetrating to the bone with 48 delay in seeking med attention Abscess, concern for early osteo Soft tissue swelling improved on empiric abx Low risk for rabies: pt's own dog, up to date on shots zina Diamond: case referred to orhto 2/2 location of the fracture con t IV vanco, ampicillin untill cultures are available monitor renal fnx Pt will need surgical exploraiton giving into account bone fracture and abscess will need prolonged abx 2/2 bone involvement Lobo Johnston
[2018-05-07] MEDS ORDERED: Influenza (Quadrivalent) Vaccine 0.5 ML Syringe IM ONE (17:00)
--- NOTE | 2018-05-07 20:40 | P.CONOP ---
[facility] Orthopedics Consult Note - [facility] Consult date: 05/07/18 Requesting physician: Montserrat Badillo Consult reason: fracture Chief complaint: Cellulitis,Dog Bite Narrative: 37 year old female who was bit by her dog on 05/02. She cleaned the wound with peroxide at home and did not seek immediate treatment. She noted swelling and increased pain 2 days later and went to the ED for evaluation at that time. She was started on antibiotics and a CT was done showing a distal radius fracture. An MRI was also performed which shows abscess formation. She reports some improvement in the swelling today, but pain has not improved much. She notes some tingling to the index finger. Review of Systems All other systems reviewed negative except as stated in [facility] PMFSH - History History Provided By: Patient - Medical History Medical History: Medical History (Last Reviewed 05/07/18 @ 20:25 by Twila Jeffers MD) Chronic pain Depression - Surgical History Surgical History: Surgical History (Last Reviewed 05/07/18 @ 20:25 by Twila Jeffers MD) History of back surgery Hx of cholecystectomy - Family History Family History: Family History (Last Reviewed 05/07/18 @ 20:25 by Twila Jeffers MD) Other No pertinent family history - Social History I have reviewed the patient's Social History: Yes - Tobacco History Second Hand Smoke Exposure: Yes Tobacco Use In Past 30 Days: Yes Smoking Status: Current every day smoker Tobacco Type: Cigarettes, E-Cigarettes - Alcohol History How Often Do You Have a Drink Containing Alcohol: Never - Substance Use History Substance History: No History of Abuse - Travel History Recent Travel in the [place] Within the Last 8 Weeks: No Recent Travel Out of the Country Within the Last 8 Weeks: No - Immunization History Tetanus Immunization: Unsure Hx Influenza Vaccine This Season: No Medications and Allergies Active Medications: Active Medications Acetaminophen (Tylenol) 650 mg PO Q4H PRN PRN Reason: Temp > 100.4 Hydrocodone Bitart/Acetaminophen ([place] 10/325) 1 tab PO Q4H PRN PRN Reason: PAIN SCALE 1 TO 5 Last Admin: 05/07/18 15:11 Dose: 1 tab Al Hydroxide/Mg Hydroxide (Milk Of Magnesia Liq) 30 ml PO Q12H PRN PRN Reason: Mild Constipation Bisacodyl (Dulcolax Supp) 10 mg RECTAL DAILY PRN PRN Reason: SEVERE CONSITIPATION Duloxetine HCl (Cymbalta) 60 mg PO DAILY [facility] Last Admin: 05/07/18 08:18 Dose: 60 mg Hydromorphone HCl (Dilaudid) 1 mg PO Q6H PRN PRN Reason: PAIN 6-10 Last Admin: 05/07/18 18:31 Dose: 1 mg Ampicillin Sodium/Sulbactam (Sodium 3 gm/ Sodium Chloride) 100 mls @ 200 mls/ hr IV.SIG Q6H [facility] Last Infusion: 05/07/18 19:25 Dose: Infused Vancomycin HCl 1,000 mg/ (Sodium Chloride) 250 mls @ 250 mls/hr IV.SIG Q8H [facility] Ibuprofen (Motrin) 600 mg PO Q8HR [facility] Last Admin: 05/07/18 13:44 Dose: 600 mg Lactulose (Lactulose Liq) 30 ml PO DAILY PRN PRN Reason: SEVERE CONSITIPATION Miscellaneous Information ([facility] Ordered Lab Info) 0 each OTHER ONCE ONE Stop: 05/08/18 20:46 Naloxone HCl (Narcan Inj) 0.4 mg IV.PUSH UNSCH PRN PRN Reason: SEE LABEL COMMENTS Ondansetron HCl (Zofran Inj) 4 mg IV.PUSH Q6H PRN PRN Reason: NAUSEA OR VOMITING Oxycodone HCl (Oxycontin Cr) 30 mg PO Q12HR [facility] Last Admin: 05/07/18 08:19 Dose: 30 mg Pharmacy Profile Note (Vancomycin Consult Pharmacy) 1 each OTHER UNSCH PRN PRN Reason: Pharmacy to dose Povidone Iodine (Betadine 10% Oint) 1 applicatio TOPICAL DAILY [facility] Last Admin: 05/07/18 08:20 Dose: 1 applicatio Senna/Docusate Sodium (Katy-Colace) 1 tab PO BID [facility] Last Admin: 05/07/18 08:18 Dose: 1 tab Sennosides (Senokot) 17.2 mg PO Q12H PRN PRN Reason: Moderate Constipation Sodium Chloride (Ns Flush) 2 ml IV.FLUSH BID [facility] Last Admin: 05/07/18 08:20 Dose: Not Given Sodium Chloride (Ns Flush) 2 ml IV.FLUSH PRN PRN PRN Reason: FLUSH AFTER USING IV ACCESS Last Admin: 05/05/18 17:32 Dose: 2 ml Allergies Allergy/AdvReac Type Severity Reaction Status Date / Time No Known Allergies Allergy Verified 05/04/18 14:42 Home Medications Medication Instructions Recorded Confirmed Type hydrocodone-acetaminophen 2 tab PO Q6-8H PRN 05/04/18 05/04/18 History oxycodone 10 mg PO Q4-6H PRN 05/04/18 05/04/18 History duloxetine 60 mg PO DAILY 05/05/18 05/05/18 History Exam Vital signs: Vital Signs 05/06/18 21:20 05/06/18 22:15 05/07/18 02:00 Temperature Pulse Rate Respiratory Rate 9 L 18 16 Blood Pressure Pulse Oximetry 05/07/18 02:30 05/07/18 03:10 05/07/18 07:07 Temperature 97.1 F L Pulse Rate 77 Respiratory Rate 20 18 Blood Pressure 89/53 L 101/64 Pulse Oximetry 96 05/07/18 07:08 05/07/18 07:45 05/07/18 08:00 Temperature 96.8 F L Pulse Rate 78 Respiratory Rate 18 18 18 Blood Pressure 97/60 L Pulse Oximetry 97 05/07/18 08:49 05/07/18 10:56 05/07/18 11:26 Temperature Pulse Rate Respiratory Rate 18 18 18 Blood Pressure Pulse Oximetry 05/07/18 12:00 05/07/18 13:31 05/07/18 14:14 Temperature 96.1 F L Pulse Rate 67 Respiratory Rate 18 18 18 Blood Pressure 84/60 L Pulse Oximetry 99 05/07/18 15:11 05/07/18 15:41 05/07/18 15:53 Temperature 97.4 F L Pulse Rate 77 Respiratory Rate 18 18 18 Blood Pressure 108/79 Pulse Oximetry 98 Intake & Output 05/07/18 05/07/18 05/08/18 06:59 18:59 06:59 Intake Total 480 / 480 100 / 100 Balance 480 / 480 100 / 100 Weight 83.4 kg Intake: IV 100 / 100 Unasyn Inj 3 GM In NS Inj 100 100 / 100 ML @ 200 mls/hr IV.SIG Q6H VARUN Rx#:[id number] Oral 480 / 480 Other: # Voids 3 6 Date of Last Bowel Movement 05/05/18 # Bowel Movements 0 Narrative: Left wrist and hand with moderate swelling. There is a punctate wound over the radial aspect of the wrist with purulent drainage. There is another punctate wound over the dorsal wrist with minimal drainage. There is significant locallized soft tissue swelling surrounding these bites concerning for abscess. She is able to flex and extend the wrist, but with pain primarily with extension. She has some tingling of the index finger but is otherwise neurovascularly intact. - Constitutional no acute distress - Routine HEENT Exam Head: Present: normocephalic Eye: Present: EOMI - Routine Neck Exam Present: supple - Routine Respiratory Exam Absent: accessory muscle use - Routine Cardiovascular Exam Present: RRR Results - Labs Result Diagrams: 05/07/18 06:06 05/07/18 06:06 Labs: Laboratory Results - last 24 hr 05/06/18 05/07/18 05/07/18 22:30 06:06 06:06 CBC w Diff Auto diff final WBC 7.0 RBC 3.74 L Hgb 11.2 L Hct 33.6 L MCV 89.8 MCH 30.0 MCHC 33.4 RDW 13.2 Plt Count 287 MPV 8.4 Neut % (Auto) 41.9 Lymph % (Auto) 45.8 H [place] % (Auto) 5.5 Eos % (Auto) 6.0 H Baso % (Auto) 0.8 Neut # (Auto) 2.9 Lymph # (Auto) 3.2 [place] # (Auto) 0.4 Eos # (Auto) 0.4 Baso # (Auto) 0.1 WBC Differential . Differential Comment . Sodium 141 Potassium 3.9 Chloride 107 Carbon Dioxide 29.5 Anion Gap 5 BUN 7 Creatinine 0.68 Estimated GFR Greater than 89 Random Glucose 96 Calcium 8.4 L Magnesium 2.0 Vancomycin Trough 5.1 - Diagnostic results Imaging: Impressions Wrist MRI 05/07/18 00:00 CONCLUSION: 1. There is concerning marrow signal and 2 superficial pockets of nonenhancement concern for soft tissue abscess. I don't see definite injury to any of the tendon sheaths and there is no significant enhancement within the tendon sheaths low-grade enhancement of the first dorsal compartment, extensor carpi ulnaris compartment and the extensor digitorum longus compartments. 2 serpiginous fluid collections along the suspected path of the bite are concerning for abscess Assessment and Plan - Assessment and Plan 37 year old female who sustained a dog bite to the left wrist 5 days ago with cellulitis, abscess formation and distal radial fracture. I recommend surgical treatment with incision and drainage, with debridement of the bone and soft tissues as indicated. I discussed risks, benefits and alternatives including risks of continued infection, bleeding, damage to neurovascular structures, and potential for further surgical procedures. I discussed this with the patient today and she would like to proceed. I also discussed the potential need for fixation of the bone depending on the extent of the debridement, though I would like to avoid this if possible due to her active infection. She should continue on the antibiotics as directed by infectious disease and should be NPO after midnight.
[2018-05-08] MEDS: Vancomycin Inj 1,000 MG in Sodium Chlor 0.9% Inj 250 ML IV.SIG SCH ×3 (06:13→22:24)
[2018-05-08] MEDS: Ibuprofen 600 MG Tablet PO SCH ×4 (06:16→23:46)
[2018-05-08] MEDS: Ampicillin/Sulbactam Inj 3 GM in Sodium Chloride 0.9% Inj 100 ML IV.SIG SCH ×3 (06:17→20:53)
[2018-05-08 07:08] LABS: Glomerular Filtration Rate Greater Than 89 mL/min (>89)
[2018-05-08] MEDS: oxyCODONE 10 MG Controlled Release Tablet PO SCH ×2 (08:48→20:51)
[2018-05-08] MEDS: Duloxetine 60 MG DR Capsule PO SCH (08:49)
[2018-05-08] MEDS: Senna/Docusate Sodium 8.6/50 MG Tablet PO SCH ×2 (08:49→20:52)
--- NOTE | 2018-05-08 09:41 | P.PNIM ---
Subjective Interval history: Patient says she is feeling right. Reports pain is controlled. Denies any chest pain or shortness of breath. Physical Exam Vital signs: Vital Signs 05/07/18 10:56 05/07/18 11:26 05/07/18 12:00 Temperature 96.1 F L Pulse Rate 67 Respiratory Rate 18 18 18 Blood Pressure 84/60 L Pulse Oximetry 99 05/07/18 13:31 05/07/18 14:14 05/07/18 15:11 Temperature Pulse Rate Respiratory Rate 18 18 18 Blood Pressure Pulse Oximetry 05/07/18 15:41 05/07/18 15:53 05/07/18 20:00 Temperature 97.4 F L 97.1 F L Pulse Rate 77 67 Respiratory Rate 18 18 18 Blood Pressure 108/79 112/55 L Pulse Oximetry 98 94 L 05/08/18 00:00 05/08/18 01:00 Temperature 97.2 F L Pulse Rate 95 H Respiratory Rate 18 16 Blood Pressure 132/70 Pulse Oximetry 95 Intake & Output 05/07/18 05/08/18 05/08/18 18:59 06:59 18:59 Intake Total 900 / 900 350 / 350 Output Total 700 / 700 Balance 200 / 200 350 / 350 Weight 86.9 kg Intake: IV 450 / 450 350 / 350 Unasyn Inj 3 GM In NS Inj 100 200 / 200 100 / 100 ML @ 200 mls/hr IV.SIG Q6H VARUN Rx#:[id number] Vancomycin Inj 1,000 MG In NS 250 / 250 250 / 250 Inj 250 ML @ 250 mls/hr IV.SIG Q8H VARUN Rx#:[id number] Oral 450 / 450 Output: Urine 700 / 700 Other: # Voids 6 Date of Last Bowel Movement 05/05/18 05/05/18 05/07/18 # Bowel Movements 0 Narrative: GENERAL: Patient lying in bed sleeping. Wakes up for exam. Appears comfortable. SKIN: Warm and dry. HEAD: Normocephalic. EYES: No scleral icterus. No injection or drainage. NECK: Supple, trachea midline. No JVD. CARDIOVASCULAR: Regular rate and rhythm without murmurs, gallops, or rubs. RESPIRATORY: Breath sounds equal bilaterally. No accessory muscle use. GASTROINTESTINAL: Abdomen soft, non-tender, nondistended. MUSCULOSKELETAL: No cyanosis, or edema. Left wrist with dressing clean dry and intact. No erythema extending beyond the dressing. BACK: Nontender without obvious deformity. No CVA tenderness. Results - Labs CBC & Chem 7: 05/07/18 06:06 05/08/18 05:35 Laboratory Results - last 24 hr 05/08/18 05:35 Creatinine 0.61 Estimated GFR Greater than 89 Microbiology 05/04/18 15:55 Blood - Peripheral Aerobic Blood Culture - Preliminary No growth in 3 days 05/04/18 15:55 Blood - Peripheral Anaerobic Blood Culture - Preliminary No growth in 3 days 05/04/18 15:50 Blood - Peripheral Aerobic Blood Culture - Preliminary No growth in 3 days 05/04/18 15:50 Blood - Peripheral Anaerobic Blood Culture - Preliminary No growth in 3 days - Imaging Impressions Wrist MRI 05/07/18 00:00 CONCLUSION: 1. There is concerning marrow signal and 2 superficial pockets of nonenhancement concern for soft tissue abscess. I don't see definite injury to any of the tendon sheaths and there is no significant enhancement within the tendon sheaths low-grade enhancement of the first dorsal compartment, extensor carpi ulnaris compartment and the extensor digitorum longus compartments. 2 serpiginous fluid collections along the suspected path of the bite are concerning for abscess Assessment and Plan - Plan 37 yo F with h/o previous back surgery presenting with lt forearm and hand cellulitis following a dog bite. //Left hand osteomyelitis //Left hand cellulitis secondary to dog bite-continue Unasyn and vancomycin, continue home dose of OxyContin, [place] as needed, ibuprofen [id number], add Dilaudid as needed orally. CT scan of the wrist did not show any abscess. No improvement with antibiotics for 48 hours, consult hand surgery. = Continue antibiotics. Orthopedics following. MR wrist pending consult ID..appreciate assistance. = 05/08. Reviewed MRI findings yesterday with infectious disease. Will continue IV antibiotics. Plan for transfer to main hospital for debridement by hand surgery. Appreciate assistance. //hypokalemia- =-Magnesium within normal limits = Resolved after replacement DVT ppx--low risk, ambulate Discharge Planning: Transfer to [facility] when Cleared by orthopedics, infectious disease
[2018-05-08] MEDS ORDERED: Metoprolol Tartrate 25 MG Tablet PO ONE (14:11)
[2018-05-08] MEDS ORDERED: Chlorhexidine Gluconate 2% 1 Pack (2 Cloths) TOPICAL ONE (14:11)
[2018-05-08] MEDS ORDERED: Sodium Chlor 0.9% Inj 500 ML IV.SIG ONE (15:00)
--- NOTE | 2018-05-08 16:53 | P.BOP ---
- Preoperative Diagnosis (1) Dog bite of arm - Postoperative Diagnosis (1) Dog bite of arm Date of procedure: 05/08/18 Procedure: left wrist I&D Anesthesia: GETA Surgeon: Twila Jeffers MD Estimated blood loss (mL): 25 Tourniquet time (min): 16 Pathology: other (cultures sent) Condition: stable Disposition: PACU
[2018-05-08] MEDS ORDERED: HYDROmorphone PF Inj 1 MG/ML Ampul IV.PUSH PRN (17:00)
[2018-05-08] MEDS ORDERED: *morphine SULFATE 4 MG/ML PERIprocedure ONLY ONE (17:04)
[2018-05-08] MEDS ORDERED: *HYDROmorphone PF Inj 1 MG/ML Ampul PERIprocedural Use ONLY ONE ×2 (17:08→17:17)
[2018-05-08] MEDS ORDERED: fentaNYL Citrate Inj 100 MCG/2 ML Ampul ONE (18:33)
[2018-05-08] MEDS ORDERED: Pharmacy Ordered Lab Info OTHER ONE (20:45)
[2018-05-09] MEDS: Ampicillin/Sulbactam Inj 3 GM in Sodium Chloride 0.9% Inj 100 ML IV.SIG SCH ×4 (00:01→17:20)
[2018-05-09] MEDS: Ibuprofen 600 MG Tablet PO SCH ×5 (05:45→23:40)
[2018-05-09] MEDS: Vancomycin Inj 1,000 MG in Sodium Chlor 0.9% Inj 250 ML IV.SIG SCH ×3 (05:45→20:41)
[2018-05-09] MEDS: Duloxetine 60 MG DR Capsule PO SCH (08:05)
[2018-05-09] MEDS: Senna/Docusate Sodium 8.6/50 MG Tablet PO SCH ×2 (08:05→20:40)
[2018-05-09] MEDS: oxyCODONE 10 MG Controlled Release Tablet PO SCH ×2 (08:05→20:40)
--- NOTE | 2018-05-09 17:45 | P.PNIM ---
Subjective Interval history: f/u left hand osteomyelitis, cellulitis secondary to dog bite , and hypokalemia Patient seen and examined laying in bed, complains of left arm pain, relieved with pain medication somewhat, afraid that the pain medication will last longer until the next med schedule. Discussed the patient to inform the nurse if on uncontrolled pain for later. Patient denies any headache or dizziness, denies any abdominal pain, nausea, vomiting, diarrhea. Complains of constipation for 2 days discussed will add bowel regimen due to pain medication use. Patient denies any fever or chills Physical Exam Vital signs: Last Vital Signs Temp 98.3 F 05/09/18 16:00 Pulse 66 05/09/18 16:00 Resp 17 05/09/18 16:00 BP 111/65 05/09/18 16:00 Pulse Ox 100 05/09/18 12:00 Intake & Output 05/07/18 05/08/18 05/09/18 05/10/18 06:59 06:59 06:59 06:59 Intake Total 2390 / 2390 900 / 900 3150 / 3150 600 / 600 Output Total 700 / 700 25 / 25 Balance 2390 / 2390 200 / 200 3125 / 3125 600 / 600 Weight 83.4 kg 86.9 kg 86.9 kg Narrative: GENERAL: Well-developed, well-nourished, young female in no apparent distress SKIN: Warm and dry. HEAD: Atraumatic. Normocephalic. EYES: Pupils equal and round. No scleral icterus. No injection or drainage. ENT: No nasal bleeding or discharge. Mucous membranes pink and moist. NECK: Trachea midline. No JVD. CARDIOVASCULAR: Regular rate and rhythm. RESPIRATORY: No accessory muscle use. Clear to auscultation. Breath sounds equal bilaterally. GASTROINTESTINAL: Abdomen soft, non-tender, nondistended. Hepatic and splenic margins not palpable. MUSCULOSKELETAL: Extremities without clubbing, cyanosis,. Left wrist with dressing clean dry and intact, no drainage noted, positive sensation and region of motion in all fingers. No erythema noted NEUROLOGICAL: Awake and alert. No obvious cranial nerve deficits. Motor grossly within normal limits. Five out of 5 muscle strength in the arms and legs except left wrist area with limited range of motion. Normal speech. PSYCHIATRIC: Appropriate mood and affect; insight and judgment normal. Results Labs CBC & Chem 7: 05/07/18 06:06 12/27/18 05:35 Labs: Microbiology 05/08/18 16:20 Wound - Wrist Acid Fast Bacilli Smear - Final No acid fast bacilli seen 05/08/18 16:15 Wound - Wrist Acid Fast Bacilli Smear - Final No acid fast bacilli seen 05/08/18 16:20 Wound - Wrist Gram Stain - Final 05/08/18 16:20 Wound - Wrist Wound Culture - Preliminary No growth in 24 hours 05/08/18 16:15 Wound - Wrist Gram Stain - Final 05/08/18 16:15 Wound - Wrist Wound Culture - Preliminary No growth in 24 hours 05/04/18 15:55 Blood - Peripheral Aerobic Blood Culture - Final No growth in 5 days 05/04/18 15:55 Blood - Peripheral Anaerobic Blood Culture - Final No growth in 5 days 05/04/18 15:50 Blood - Peripheral Aerobic Blood Culture - Final No growth in 5 days 05/04/18 15:50 Blood - Peripheral Anaerobic Blood Culture - Final No growth in 5 days 05/08/18 16:20 Wound - Wrist Fungal Smear - Final No fungal elements seen 05/08/18 16:15 Wound - Wrist Fungal Smear - Final No fungal elements seen Assessment and Plan Plan This is a 37 yo female with h/o previous back surgery presenting with left forearm and hand cellulitis following a dog bite. Left hand osteomyelitis Left hand cellulitis secondary to dog bite Abscess formation and distal radial fracture - CT scan of the wrist did not show any abscess -Wrist MRI: There is concerning marrow signal and 2 superficial pockets of nonenhancement concern for soft tissue abscess. I don't see definite injury to any of the tendon sheaths and there is no significant enhancement within the tendon sheaths low-grade enhancement of the first dorsal compartment, extensor carpi ulnaris compartment and the extensor digitorum longus compartments. 2 serpiginous fluid collections along the suspected path of the bite are concerning for abscess -Orthopedic surgeon following, appreciate recommendation -Status post I&D of left wrist with orthopedic surgeon, wound culture sent, follow results -ID consulted, appreciate recommendation: Continue IV Unasyn and vancomycin -continue pain management with home dose of OxyContin scheduled, ibuprofen [id number], [place] and Dilaudid PO as needed , with bowel regimen Hypokalemia- -Magnesium within normal limits -Resolved after replacement DVT ppx: low risk, encourage ambulate Code Status: full code Progress Note: Quality VTE Deep Vein Thrombosis/Pulmonary Embolism Present on Admission: No
[2018-05-10] MEDS: Ampicillin/Sulbactam Inj 3 GM in Sodium Chloride 0.9% Inj 100 ML IV.SIG SCH ×4 (00:16→18:19)
--- NOTE | 2018-05-10 00:24 | P.PNOP ---
Subjective Interval history: Stable overnight. Reports wrist is sore. No fevers. Physical Exam Vital signs: Vital Signs 05/09/18 03:24 05/09/18 04:00 05/09/18 06:43 Temperature 97.8 F Pulse Rate 68 Respiratory Rate 20 19 20 Blood Pressure 94/56 L Pulse Oximetry 96 05/09/18 08:00 05/09/18 12:00 05/09/18 16:00 Temperature 98.0 F 97.8 F 98.3 F Pulse Rate 70 66 66 Respiratory Rate 17 17 17 Blood Pressure 96/56 L 105/57 L 111/65 Pulse Oximetry 96 100 05/09/18 19:42 05/09/18 21:12 05/10/18 00:00 Temperature 98.2 F 97.7 F Pulse Rate 78 65 Respiratory Rate 18 20 19 Blood Pressure 100/58 L 107/65 Pulse Oximetry 96 96 Intake & Output 05/09/18 05/09/18 05/10/18 06:59 18:59 06:59 Intake Total 1450 / 1450 2500 / 2500 250 / 250 Balance 1450 / 1450 2500 / 2500 250 / 250 Weight 86.9 kg Intake: IV 550 / 550 700 / 700 250 / 250 Unasyn Inj 3 GM In NS Inj 100 300 / 300 200 / 200 ML @ 200 mls/hr IV.SIG Q6H VARUN Rx#:[id number] Vancomycin Inj 1,000 MG In NS 250 / 250 500 / 500 250 / 250 Inj 250 ML @ 250 mls/hr IV.SIG Q8H VARUN Rx#:[id number] Oral 900 / 900 1800 / 1800 Other: # Voids 4 8 Date of Last Bowel Movement 05/07/18 Narrative: left wrist splint c/d/i, able to wiggle all fingers, BCR all digits, sensation intact throughout Results - Labs CBC & Chem 7: 05/07/18 06:06 05/08/18 05:35 Microbiology 05/08/18 16:20 Wound - Wrist Acid Fast Bacilli Smear - Final No acid fast bacilli seen 05/08/18 16:15 Wound - Wrist Acid Fast Bacilli Smear - Final No acid fast bacilli seen 05/08/18 16:20 Wound - Wrist Gram Stain - Final 05/08/18 16:20 Wound - Wrist Wound Culture - Preliminary No growth in 24 hours 05/08/18 16:15 Wound - Wrist Gram Stain - Final 05/08/18 16:15 Wound - Wrist Wound Culture - Preliminary No growth in 24 hours 05/04/18 15:55 Blood - Peripheral Aerobic Blood Culture - Final No growth in 5 days 05/04/18 15:55 Blood - Peripheral Anaerobic Blood Culture - Final No growth in 5 days 05/04/18 15:50 Blood - Peripheral Aerobic Blood Culture - Final No growth in 5 days 05/04/18 15:50 Blood - Peripheral Anaerobic Blood Culture - Final No growth in 5 days 05/08/18 16:20 Wound - Wrist Fungal Smear - Final No fungal elements seen 05/08/18 16:15 Wound - Wrist Fungal Smear - Final No fungal elements seen Assessment and Plan - Assessment and Plan 37 year old female POD 1 s/p I&D left wrist Plan: Follow cultures Antibiotics per ID Wound check and pull carmina drains tomorrow plan to place into removable wrist brace after wound check tomorrow begin daily dressing changes tomorrow will follow
[2018-05-10] MEDS: Vancomycin Inj 1,000 MG in Sodium Chlor 0.9% Inj 250 ML IV.SIG SCH ×3 (04:01→20:21)
[2018-05-10] MEDS: Ibuprofen 600 MG Tablet PO SCH ×3 (05:36→22:16)
[2018-05-10] MEDS: oxyCODONE 10 MG Controlled Release Tablet PO SCH ×2 (08:27→20:21)
[2018-05-10] MEDS: Duloxetine 60 MG DR Capsule PO SCH (08:27)
[2018-05-10] MEDS: Senna/Docusate Sodium 8.6/50 MG Tablet PO SCH ×2 (08:27→20:21)
[2018-05-10 09:12] LABS: Baso % (Auto) 0.5 % (0.0-2.0); Eos # (Auto) 0.3 th/mm3 (0.0-0.4); Eos % (Auto) 3.2 % (0.0-4.0); Hematocrit 29.9 % (35.0-46.0); Hemoglobin 10.5 gm/dL (11.6-15.3); Lymph % (Auto) 50.6 % (9.0-44.0); Mean Corpuscular HGB Conc 35.1 % (32.0-36.0); Mean Corpuscular Hemoglobin 31.3 pg (27.0-34.0); Mean Corpuscular Volume 89.2 fL (80.0-100.0); Mean Platelet Volume 8.3 fL (7.0-11.0); Mono # (Auto) 0.4 th/mm3 (0.0-0.9); Mono % (Auto) 5.1 % (0.0-8.0); Neut # (Auto) 3.2 th/mm3 (1.8-7.7); Neut % (Auto) 40.6 % (16.0-70.0); Platelet Count 269 th/mm3 (150-450); Red Blood Count 3.35 mil/mm3 (4.00-5.30); Red Cell Distribution Width 13.5 % (11.6-17.2)
[2018-05-10 09:46] LABS: Glomerular Filtration Rate Greater Than 89 mL/min (>89)
--- NOTE | 2018-05-10 09:55 | P.PNOP ---
Subjective Interval history: pain improving nad Physical Exam Vital signs: Vital Signs 05/09/18 12:00 05/09/18 16:00 05/09/18 19:42 Temperature 97.8 F 98.3 F 98.2 F Pulse Rate 66 66 78 Respiratory Rate 17 17 18 Blood Pressure 105/57 L 111/65 100/58 L Pulse Oximetry 100 96 05/09/18 21:12 05/10/18 00:00 05/10/18 05:39 Temperature 97.7 F Pulse Rate 65 Respiratory Rate 20 19 20 Blood Pressure 107/65 Pulse Oximetry 96 05/10/18 08:00 Temperature 98.2 F Pulse Rate 74 Respiratory Rate 17 Blood Pressure 93/57 L Pulse Oximetry 96 Intake & Output 05/09/18 05/10/18 05/10/18 18:59 06:59 18:59 Intake Total 2500 / 2500 1600 / 1600 Balance 2500 / 2500 1600 / 1600 Weight 86.9 kg Intake: IV 700 / 700 700 / 700 Unasyn Inj 3 GM In NS Inj 100 200 / 200 200 / 200 ML @ 200 mls/hr IV.SIG Q6H VARUN Rx#:[id number] Vancomycin Inj 1,000 MG In NS 500 / 500 500 / 500 Inj 250 ML @ 250 mls/hr IV.SIG Q8H VARUN Rx#:[id number] Oral 1800 / 1800 900 / 900 Other: # Voids 8 4 Date of Last Bowel Movement 05/07/18 05/09/18 - Routine Extremities Exam Comments: left wrist splint removed carmina drains removed wounds cleaned with soap and water new sterile dressings applied nvi distally tendons intact Results - Labs CBC & Chem 7: 05/10/18 07:15 05/10/18 07:15 Laboratory Results - last 24 hr 05/10/18 05/10/18 07:15 07:15 WBC 8.0 RBC 3.35 L Hgb 10.5 L Hct 29.9 L MCV 89.2 MCH 31.3 MCHC 35.1 RDW 13.5 Plt Count 269 MPV 8.3 Neut % (Auto) 40.6 Lymph % (Auto) 50.[address] % (Auto) 5.1 Eos % (Auto) 3.2 Baso % (Auto) 0.5 Neut # (Auto) 3.2 Lymph # (Auto) 4.0 Lane # (Auto) 0.4 Eos # (Auto) 0.3 Baso # (Auto) 0.0 WBC Differential . Differential Comment Auto diff final Creatinine 0.68 Estimated GFR Greater than 89 Microbiology 05/08/18 16:20 Wound - Wrist Gram Stain - Final 05/08/18 16:20 Wound - Wrist Wound Culture - Preliminary No growth in 48 hours 05/08/18 16:15 Wound - Wrist Gram Stain - Final 05/08/18 16:15 Wound - Wrist Wound Culture - Preliminary No growth in 48 hours 05/08/18 16:20 Wound - Wrist Acid Fast Bacilli Smear - Final No acid fast bacilli seen 05/08/18 16:15 Wound - Wrist Acid Fast Bacilli Smear - Final No acid fast bacilli seen 05/04/18 15:55 Blood - Peripheral Aerobic Blood Culture - Final No growth in 5 days 05/04/18 15:55 Blood - Peripheral Anaerobic Blood Culture - Final No growth in 5 days 05/04/18 15:50 Blood - Peripheral Aerobic Blood Culture - Final No growth in 5 days 05/04/18 15:50 Blood - Peripheral Anaerobic Blood Culture - Final No growth in 5 days 05/08/18 16:20 Wound - Wrist Fungal Smear - Final No fungal elements seen 05/08/18 16:15 Wound - Wrist Fungal Smear - Final No fungal elements seen Assessment and Plan - Assessment and Plan 37 year old female POD 1 s/p I&D left wrist Plan: Follow cultures Antibiotics per ID wound care plan to place into removable wrist brace after wound check tomorrow begin daily dressing changes tomorrow will follow
[2018-05-10] MEDS ORDERED: Pharmacy Ordered Lab Info OTHER ONE (12:45)
--- NOTE | 2018-05-10 14:05 | P.PNIM ---
Subjective Interval history: f/u left hand osteomyelitis, cellulitis secondary to dog bite , left wrist fracture and hypokalemia Patient seen and examined, lying in bed, sleeping, c/o of pain and discomfort on left arm/wrist, discussed with nurse to give pain medication Patient denies any headache or dizziness, denies fever or chills Physical Exam Vital signs: Last Vital Signs Temp 98.1 F 05/10/18 11:45 Pulse 71 05/10/18 11:45 Resp 17 05/10/18 11:45 BP 110/67 05/10/18 11:45 Pulse Ox 98 05/10/18 11:45 Intake & Output 05/08/18 05/09/18 05/10/18 05/11/18 06:59 06:59 06:59 06:59 Intake Total 900 / 900 3150 / 3150 4100 / 4100 Output Total 700 / 700 25 / 25 Balance 200 / 200 3125 / 3125 4100 / 4100 Weight 86.9 kg 86.9 kg 86.9 kg Narrative: GENERAL: Well-developed, well-nourished, young female in no apparent distress SKIN: Warm and dry. HEAD: Atraumatic. Normocephalic. EYES: Pupils equal and round. No scleral icterus. No injection or drainage. ENT: No nasal bleeding or discharge. Mucous membranes pink and moist. NECK: Trachea midline. No JVD. CARDIOVASCULAR: Regular rate and rhythm. RESPIRATORY: No accessory muscle use. Clear to auscultation. Breath sounds equal bilaterally. GASTROINTESTINAL: Abdomen soft, non-tender, nondistended. Hepatic and splenic margins not palpable. MUSCULOSKELETAL: Extremities without clubbing, cyanosis,. Left wrist with dressing clean dry and intact, no drainage noted, positive sensation and range of motion in all fingers. No erythema or edema noted NEUROLOGICAL: Awake and alert. No obvious cranial nerve deficits. Motor grossly within normal limits. Five out of 5 muscle strength in the arms and legs except left wrist area with limited range of motion. Normal speech. PSYCHIATRIC: Appropriate mood and affect; insight and judgment normal. Results Labs CBC & Chem 7: 05/10/18 07:15 05/10/18 07:15 Labs: Microbiology 05/08/18 16:20 Wound - Wrist Gram Stain - Final 05/08/18 16:20 Wound - Wrist Wound Culture - Preliminary No growth in 48 hours 05/08/18 16:15 Wound - Wrist Gram Stain - Final 05/08/18 16:15 Wound - Wrist Wound Culture - Preliminary No growth in 48 hours 05/08/18 16:20 Wound - Wrist Acid Fast Bacilli Smear - Final No acid fast bacilli seen 05/08/18 16:15 Wound - Wrist Acid Fast Bacilli Smear - Final No acid fast bacilli seen 05/04/18 15:55 Blood - Peripheral Aerobic Blood Culture - Final No growth in 5 days 05/04/18 15:55 Blood - Peripheral Anaerobic Blood Culture - Final No growth in 5 days 05/04/18 15:50 Blood - Peripheral Aerobic Blood Culture - Final No growth in 5 days 05/04/18 15:50 Blood - Peripheral Anaerobic Blood Culture - Final No growth in 5 days 05/08/18 16:20 Wound - Wrist Fungal Smear - Final No fungal elements seen 05/08/18 16:15 Wound - Wrist Fungal Smear - Final No fungal elements seen Assessment and Plan Plan This is a 37 yo female with h/o previous back surgery presenting with left forearm and hand cellulitis following a dog bite. Left hand osteomyelitis Left hand cellulitis secondary to dog bite Abscess formation and distal radial fracture - CT scan of the wrist did not show any abscess -Wrist MRI: There is concerning marrow signal and 2 superficial pockets of nonenhancement concern for soft tissue abscess. I don't see definite injury to any of the tendon sheaths and there is no significant enhancement within the tendon sheaths low-grade enhancement of the first dorsal compartment, extensor carpi ulnaris compartment and the extensor digitorum longus compartments. 2 serpiginous fluid collections along the suspected path of the bite are concerning for abscess -Status post I&D of left wrist with orthopedic surgeon, wound culture sent, follow results -ID consulted, appreciate recommendation: Continue IV Unasyn and vancomycin -continue pain management with home dose of OxyContin scheduled, ibuprofen [id number], [place] and Dilaudid PO as needed , with bowel regimen -Orthopedic surgeon following, appreciate recommendation: wound care, plan to place into removable wrist brace after wound check tomorrow, begin daily dressing changes tomorrow - Wound wrist Culture: no growth in 48 hrs, fungal culture pending, mycobacterial culture pending, follow results Hypokalemia- -Magnesium within normal limits -Resolved after replacement DVT ppx: low risk, encourage ambulate Progress Note: Quality VTE Deep Vein Thrombosis/Pulmonary Embolism Present on Admission: No
[2018-05-10 14:36] LABS: Vancomycin,Trough 16.6 mcg/mL (5.0-10.0)
[2018-05-10 14:37] LABS: Calcium 7.8 mg/dL (8.5-10.1); Carbon Dioxide 26.1 meq/L (21.0-32.0); Potassium 4.2 meq/L (3.5-5.1)
[2018-05-11] MEDS: Ampicillin/Sulbactam Inj 3 GM in Sodium Chloride 0.9% Inj 100 ML IV.SIG SCH ×4 (00:01→17:02)
[2018-05-11] MEDS: Vancomycin Inj 1,000 MG in Sodium Chlor 0.9% Inj 250 ML IV.SIG SCH ×3 (04:10→21:01)
[2018-05-11] MEDS: Ibuprofen 600 MG Tablet PO SCH ×3 (05:18→20:59)
--- NOTE | 2018-05-11 07:51 | P.PNOP ---
Subjective Interval history: Resting comfortably with no new complaints Physical Exam Vital signs: Vital Signs 05/10/18 08:00 05/10/18 11:45 05/10/18 15:50 Temperature 98.2 F 98.1 F 98.3 F Pulse Rate 74 71 67 Respiratory Rate 17 17 16 Blood Pressure 93/57 L 110/67 118/65 Pulse Oximetry 96 98 100 05/10/18 20:00 05/11/18 00:00 Temperature 97.9 F 98.1 F Pulse Rate 75 80 Respiratory Rate 16 18 Blood Pressure 98/54 L 107/67 Pulse Oximetry 100 97 Intake & Output 05/10/18 05/11/18 05/11/18 18:59 06:59 18:59 Intake Total 1650 / 1650 1180 / 1180 Balance 1650 / 1650 1180 / 1180 Weight 86.6 kg Intake: IV 450 / 450 700 / 700 Unasyn Inj 3 GM In NS Inj 100 200 / 200 200 / 200 ML @ 200 mls/hr IV.SIG Q6H VARUN Rx#:[id number] Vancomycin Inj 1,000 MG In NS 250 / 250 500 / 500 Inj 250 ML @ 250 mls/hr IV.SIG Q8H VARUN Rx#:[id number] Oral 1200 / 1200 480 / 480 Other: # Voids 3 4 Date of Last Bowel Movement 05/09/18 05/10/18 Narrative: Left upper extremity: Dressings taken down showing 2 lacerations that are well approximated and sutured into place. Mild erythema and mild drainage. Intact sensation of her radial, ulnar and median nerve distributions. Full extension and flexions of all fingers Results - Labs CBC & Chem 7: 05/10/18 07:15 05/10/18 13:10 Laboratory Results - last 24 hr 05/10/18 05/10/18 05/10/18 07:15 07:15 13:10 WBC 8.0 RBC 3.35 L Hgb 10.5 L Hct 29.9 L MCV 89.2 MCH 31.3 MCHC 35.1 RDW 13.5 Plt Count 269 MPV 8.3 Neut % (Auto) 40.6 Lymph % (Auto) 50.6 H [place] % (Auto) 5.1 Eos % (Auto) 3.2 Baso % (Auto) 0.5 Neut # (Auto) 3.2 Lymph # (Auto) 4.0 [place] # (Auto) 0.4 Eos # (Auto) 0.3 Baso # (Auto) 0.0 WBC Differential . Differential Comment Auto diff final Sodium 142 Potassium 4.2 Chloride 109 H Carbon Dioxide 26.1 Anion Gap 7 BUN 10 Creatinine 0.68 0.77 Estimated GFR Greater than 89 83 L Random Glucose 86 Calcium 7.8 L Vancomycin Trough 16.6 H Microbiology 05/08/18 16:20 Wound - Wrist Gram Stain - Final 05/08/18 16:20 Wound - Wrist Wound Culture - Preliminary No growth in 48 hours 05/08/18 16:15 Wound - Wrist Gram Stain - Final 05/08/18 16:15 Wound - Wrist Wound Culture - Preliminary No growth in 48 hours Assessment and Plan - Assessment and Plan 37 year old female POD 2 s/p I&D left wrist Plan: Follow cultures Antibiotics per ID [facility] for cockup wrist splint left wrist Begin daily dressing changes with Xeroform, 4 x 4's and Vasu wrap to left wrist Nonweightbearing left wrist
[2018-05-11] MEDS: oxyCODONE 10 MG Controlled Release Tablet PO SCH ×2 (08:14→20:59)
[2018-05-11] MEDS: Senna/Docusate Sodium 8.6/50 MG Tablet PO SCH ×2 (08:14→21:00)
[2018-05-11] MEDS: Duloxetine 60 MG DR Capsule PO SCH (08:14)
--- NOTE | 2018-05-11 10:48 | P.PNIM ---
Subjective Interval history: F/u left hand osteomyelitis, cellulitis secondary to dog bite s/p I & D, left wrist fracture and hypokalemia Patient seen and examined today sitting on the bed eating breakfast that still having left wrist pain which has had pain medication. Patient still in scale and was relieved by Dilaudid. Patient still did not taking Dilaudid more often than [place]. Also taking OxyContin scheduled per home dose. Patient denies any headache or dizziness, denies any chest pain or shortness of breath, denies abdominal pain, nausea, vomiting, diarrhea or constipation. Patient denies any fever or chills. Reported no acute concerns Physical Exam Vital signs: Last Vital Signs Temp 97.8 F 05/11/18 08:00 Pulse 60 05/11/18 08:00 Resp 18 05/11/18 08:00 BP 98/57 L 05/11/18 08:00 Pulse Ox 97 05/11/18 08:00 Intake & Output 05/09/18 05/10/18 05/11/18 05/12/18 06:59 06:59 06:59 06:59 Intake Total 3150 / 3150 4100 / 4100 2830 / 2830 Output Total 25 / 25 Balance 3125 / 3125 4100 / 4100 2830 / 2830 Weight 86.9 kg 86.9 kg 86.6 kg Narrative: GENERAL: Well-developed, well-nourished, young female in no apparent distress SKIN: Warm and dry. HEAD: Atraumatic. Normocephalic. EYES: Pupils equal and round. No scleral icterus. No injection or drainage. ENT: No nasal bleeding or discharge. Mucous membranes pink and moist. NECK: Trachea midline. No JVD. CARDIOVASCULAR: Regular rate and rhythm. RESPIRATORY: No accessory muscle use. Clear to auscultation. Breath sounds equal bilaterally. GASTROINTESTINAL: Abdomen soft, non-tender, nondistended. Hepatic and splenic margins not palpable. MUSCULOSKELETAL: Extremities without clubbing, cyanosis,. Left wrist posterior and right lateral incisions with stitches, clean dry and intact, no redness no drainage. With dressing clean dry and intact, no drainage noted, positive sensation and range of motion in all fingers. No erythema or edema noted NEUROLOGICAL: Awake and alert. No obvious cranial nerve deficits. Motor grossly within normal limits. Five out of 5 muscle strength in the arms and legs except left wrist area with limited range of motion. Normal speech. PSYCHIATRIC: Appropriate mood and affect; insight and judgment normal. Results Labs CBC & Chem 7: 05/10/18 07:15 05/11/18 06:14 Labs: Microbiology 05/08/18 16:20 Wound - Wrist Gram Stain - Final 05/08/18 16:20 Wound - Wrist Wound Culture - Final No growth in 72 hours (aerobically and anaerobically ) 05/08/18 16:15 Wound - Wrist Gram Stain - Final 05/08/18 16:15 Wound - Wrist Wound Culture - Final No growth in 72 hours (aerobically and anaerobically ) Assessment and Plan Plan This is a 37 yo female with h/o previous back surgery presenting with left forearm and hand cellulitis following a dog bite. Left hand osteomyelitis Left hand cellulitis secondary to dog bite Abscess formation and distal radial fracture - CT scan of the wrist did not show any abscess -Wrist MRI: There is concerning marrow signal and 2 superficial pockets of nonenhancement concern for soft tissue abscess. I don't see definite injury to any of the tendon sheaths and there is no significant enhancement within the tendon sheaths low-grade enhancement of the first dorsal compartment, extensor carpi ulnaris compartment and the extensor digitorum longus compartments. 2 serpiginous fluid collections along the suspected path of the bite are concerning for abscess -Status post I&D of left wrist with orthopedic surgeon, wound culture sent, follow results -ID consulted, appreciate recommendation: Continue IV Unasyn and vancomycin -continue pain management with home dose of OxyContin scheduled, ibuprofen [id number], [place] and Dilaudid PO as needed , with bowel regimen -Orthopedic surgeon following, appreciate recommendation -Wound wrist Culture: no growth in 72 hrs, fungal culture pending, mycobacterial culture pending, follow results -[facility] for cockup wrist splint left wrist -Begin daily dressing changes with Xeroform, 4 x 4's and Vasu wrap to left wrist -Nonweightbearing left wrist Hypokalemia- -Magnesium within normal limits -Resolved after replacement DVT ppx: low risk, encourage ambulate Progress Note: Quality VTE Deep Vein Thrombosis/Pulmonary Embolism Present on Admission: No
[2018-05-12] MEDS: Ampicillin/Sulbactam Inj 3 GM in Sodium Chloride 0.9% Inj 100 ML IV.SIG SCH ×4 (00:39→18:30)
[2018-05-12] MEDS: Vancomycin Inj 1,000 MG in Sodium Chlor 0.9% Inj 250 ML IV.SIG SCH ×2 (04:40→12:24)
[2018-05-12] MEDS: Ibuprofen 600 MG Tablet PO SCH ×2 (05:32→14:13)
--- NOTE | 2018-05-12 06:53 | P.PNOP ---
Subjective Interval history: Resting comfortably with no new complaint Physical Exam Vital signs: Vital Signs 05/11/18 08:00 05/11/18 12:00 05/11/18 16:00 Temperature 97.8 F 97.8 F 98.0 F Pulse Rate 60 74 71 Respiratory Rate 18 18 18 Blood Pressure 98/57 L 102/59 L 126/74 Pulse Oximetry 97 99 99 05/11/18 20:00 05/12/18 00:00 Temperature 98.0 F 97.9 F Pulse Rate 76 62 Respiratory Rate 17 16 Blood Pressure 101/58 L 120/70 Pulse Oximetry 98 97 Intake & Output 05/11/18 05/11/18 05/12/18 06:59 18:59 06:59 Intake Total 1180 / 1180 2150 / 2150 700 / 700 Balance 1180 / 1180 2150 / 2150 700 / 700 Weight 86.6 kg 88.3 kg Intake: IV 700 / 700 350 / 350 700 / 700 Unasyn Inj 3 GM In NS Inj 100 200 / 200 100 / 100 200 / 200 ML @ 200 mls/hr IV.SIG Q6H VARUN Rx#:[id number] Vancomycin Inj 1,000 MG In NS 500 / 500 250 / 250 500 / 500 Inj 250 ML @ 250 mls/hr IV.SIG Q8H VARUN Rx#:[id number] Oral 480 / 480 1800 / 1800 Other: # Voids 4 4 4 Date of Last Bowel Movement 05/10/18 05/10/18 Narrative: Clean dry dressings intact to left upper extremity. Splint reapplied. Intact sensation distally in all fingers. Full extension and flexion Results - Labs CBC & Chem 7: 05/10/18 07:15 05/11/18 06:14 Laboratory Results - last 24 hr 05/11/18 06:14 Creatinine 0.79 Estimated GFR 81 L Microbiology 05/08/18 16:20 Wound - Wrist Gram Stain - Final 05/08/18 16:20 Wound - Wrist Wound Culture - Final No growth in 72 hours (aerobically and anaerobically ) 05/08/18 16:15 Wound - Wrist Gram Stain - Final 05/08/18 16:15 Wound - Wrist Wound Culture - Final No growth in 72 hours (aerobically and anaerobically ) Assessment and Plan - Assessment and Plan 37 year old female POD 3 s/p I&D left wrist Plan: Follow cultures -cultures are negative thus far Antibiotics per ID cockup wrist splint left wrist at all times Daily dressing changes with Xeroform, 4 x 4's and Vasu wrap to left wrist Nonweightbearing left wrist She is orthopedically clear for discharge once plan is solidified by infectious disease
--- NOTE | 2018-05-12 06:55 | P.DCO ---
- Nursing Dressing changes: Daily dressing change, Vasu wrap, 4x4s, Other (Bacitracin and Adaptic) - Certification Need for Home Health services: I have seen patient Enedina Horn on 05/12/18. My clinical findings support the need for the requested home health care services because: Need for Home Health Services: Limited mobility due to disease progression Homebound Certification: I certify that my clinical findings support that this patient is homebound because: Homebound Certification: Post-op weakness
[2018-05-12] MEDS: oxyCODONE 10 MG Controlled Release Tablet PO SCH (08:20)
[2018-05-12] MEDS: Duloxetine 60 MG DR Capsule PO SCH (08:20)
[2018-05-12] MEDS: Senna/Docusate Sodium 8.6/50 MG Tablet PO SCH (08:20)
--- NOTE | 2018-05-12 11:59 | P.OP ---
- Preoperative Diagnosis (1) Dog bite of arm (2) Fracture of left distal radius - Postoperative Diagnosis (1) Dog bite of arm (2) Fracture of left distal radius Date of procedure: 05/08/18 Procedure: left wrist irrigation and debridement Anesthesia: BÁRBARA Surgeon: Twila Jeffers MD Estimated blood loss (mL): 25 Tourniquet time (min): 16 Pathology: other (cultures sent) Operation and Findings: Indications: This is a 37 year old female who sustained a dog bite to the left wrist. She developed swelling and pain. Imaging showed a distal radius fracture in addition to probable abscess formation. Surgical treatment was recommended. Risks, benefits and alternatives were discussed with the patient preoperatively and informed consent was obtained. Description of operation: The patient was identified in the preoperative holding area and the correct site was marked. She was brought back to the OR and positioned supine on the OR table with a hand table attachment. A nonsterile tourniquet was placed to the left arm, and the arm was then prepped and draped in the usual sterile fashion. The patient was on scheduled antibiotics. A timeout was performed prior to start. I then began by addressing the dorsal bite wound. I made a longitudinal incision ellipsing out the bite wound and opening this up over the area of swelling where bloody fluid was encountered. It was not grossly purulent, though there was a definite fluid collection there. The arm was elevated and the tourniquet inflated to get better visualization. The wound was irrigated copiously with antibiotic irrigation fluid. Exploration of this wound revealed it was superficial to the extensor tendon sheath. Attention was then turned to the radial wound. There was some purulent material noted at this puncture site. I made a longitudinal incision over this area ellipsing out the bite site. Minimal fluid was encountered at this site. The area was explored and the wound did communicate with a small defect in the distal radius. The area was copiously irrigated and a small curette was used to debride the defect in the distal radius. Once both wounds were clean, the tourniquet was deflated and hemostasis attained The wounds were loosely closed with nylon over carmina drains. Sterile dressings were applied and a volar plaster splint placed. She was then awoken from general anesthesia and taken to the recovery room in good condition. Disposition: She is nonweightbearing on this extremity. Follow cultures and continue antibiotics per infectious disease recommendations. Will plan to do wound check and remove drains on POD 2, then place her into a removable wrist splint.
--- NOTE | 2018-05-12 16:51 | P.PNIM ---
Subjective Interval history: F/u left hand osteomyelitis, cellulitis secondary to dog bite s/p I & D, left wrist fracture and hypokalemia Patient seen and examined laying in bed, still complaining of pain on the left wrist, and still using a lot of pain medications. Patient stated she had been using OxyContin at home with as needed hydrocodone however the hydrocodone she stopped using it. At this time she preferred to use the Dilaudid for pain medication. Patient more controlled with Dilaudid per patient. Patient denies any headache or dizziness, denies any chest pain or shortness of breath, denies any abdominal pain, nausea, vomiting, diarrhea or constipation. Patient denies any fever or chills. Nurse discussed concern patient wanting to go home. Physical Exam Vital signs: Last Vital Signs Temp 97.8 F 05/12/18 12:00 Pulse 89 05/12/18 12:00 Resp 18 05/12/18 12:00 BP 104/67 05/12/18 12:00 Pulse Ox 97 05/12/18 12:00 Intake & Output 05/10/18 05/11/18 05/12/18 05/13/18 06:59 06:59 06:59 06:59 Intake Total 4100 / 4100 2830 / 2830 2850 / 2850 100 / 100 Balance 4100 / 4100 2830 / 2830 2850 / 2850 100 / 100 Weight 86.9 kg 86.6 kg 88.3 kg Narrative: GENERAL: Well-developed, well-nourished, young female in no apparent distress SKIN: Warm and dry. HEAD: Atraumatic. Normocephalic. EYES: Pupils equal and round. No scleral icterus. No injection or drainage. ENT: No nasal bleeding or discharge. Mucous membranes pink and moist. NECK: Trachea midline. No JVD. CARDIOVASCULAR: Regular rate and rhythm. RESPIRATORY: No accessory muscle use. Clear to auscultation. Breath sounds equal bilaterally. GASTROINTESTINAL: Abdomen soft, non-tender, nondistended. Hepatic and splenic margins not palpable. MUSCULOSKELETAL: Extremities without clubbing, cyanosis,. Left wrist posterior and right lateral incisions with stitches, clean dry and intact, no redness no drainage. With dressing clean dry and intact, no drainage noted, positive sensation and range of motion in all fingers. No erythema or edema noted. Left wrist splint in place NEUROLOGICAL: Awake and alert. No obvious cranial nerve deficits. Motor grossly within normal limits. Five out of 5 muscle strength in the arms and legs except left wrist area with limited range of motion. Normal speech. PSYCHIATRIC: Appropriate mood and affect; insight and judgment normal. Results Labs CBC & Chem 7: 05/10/18 07:15 05/12/18 09:59 Assessment and Plan (1) Fracture of left distal radius: Code(s): S52.502A - Unspecified fracture of the lower end of left radius, initial encounter for closed fracture Status: Acute Plan This is a 37 yo female with h/o previous back surgery presenting with left forearm and hand cellulitis following a dog bite. Left hand osteomyelitis Left hand cellulitis secondary to dog bite Abscess formation and distal radial fracture - CT scan of the wrist did not show any abscess -Wrist MRI: There is concerning marrow signal and 2 superficial pockets of nonenhancement concern for soft tissue abscess. I don't see definite injury to any of the tendon sheaths and there is no significant enhancement within the tendon sheaths low-grade enhancement of the first dorsal compartment, extensor carpi ulnaris compartment and the extensor digitorum longus compartments. 2 serpiginous fluid collections along the suspected path of the bite are concerning for abscess -Status post I&D of left wrist with orthopedic surgeon, wound culture sent, follow results -ID consulted, appreciate recommendation: Continue IV Unasyn and vancomycin -continue pain management with home dose of OxyContin scheduled, ibuprofen [id number], [place] and Dilaudid PO as needed , with bowel regimen -Orthopedic surgeon following, appreciate recommendation -Wound wrist Culture: no growth in 72 hrs, fungal culture pending, mycobacterial culture pending, follow results -[facility] for cockup wrist splint left wrist -Begin daily dressing changes with Xeroform, 4 x 4's and Vasu wrap to left wrist -Nonweightbearing left wrist -Patient cleared with discharge by orthopedic, awaiting clearance from infectious disease -Monitor CBC, CMP, and CRP Hypokalemia- -Magnesium within normal limits -Resolved after replacement Normocytic anemia -Likely related to left wrist I&D -Monitor CBC DVT ppx: low risk, encourage ambulate Progress Note: Quality VTE Deep Vein Thrombosis/Pulmonary Embolism Present on Admission: No
--- NOTE | 2018-05-12 17:16 | P.PNID ---
Subjective Remarks: sp surgery sp I+D per op report purulent material communiocated with distal radius Op cultures NG @ 3 days no fever Antibiotics: unasyn Allergies/Adverse Reactions: Allergies No Known Allergies Allergy (Verified 05/04/18 14:42) Objective Vital Signs 05/11/18 20:00 05/12/18 00:00 05/12/18 08:00 Temperature 98.0 F 97.9 F 97.8 F Pulse Rate 76 62 70 Respiratory Rate 17 16 18 Blood Pressure 101/58 L 120/70 100/50 L Pulse Oximetry 98 97 96 05/12/18 12:00 Temperature 97.8 F Pulse Rate 89 Respiratory Rate 18 Blood Pressure 104/67 Pulse Oximetry 97 Intake & Output 05/11/18 05/12/18 05/12/18 18:59 06:59 18:59 Intake Total 2150 / 2150 700 / 700 100 / 100 Balance 2150 / 2150 700 / 700 100 / 100 Weight 88.3 kg Intake: IV 350 / 350 700 / 700 100 / 100 Unasyn Inj 3 GM In NS Inj 100 100 / 100 200 / 200 100 / 100 ML @ 200 mls/hr IV.SIG Q6H VARUN Rx#:[id number] Vancomycin Inj 1,000 MG In NS 250 / 250 500 / 500 Inj 250 ML @ 250 mls/hr IV.SIG Q8H VARUN Rx#:[id number] Oral 1800 / 1800 Other: # Voids 4 4 Date of Last Bowel Movement 05/10/18 05/08/18 16:20 Wound - Wrist Gram Stain - Final 05/08/18 16:20 Wound - Wrist Wound Culture - Final No growth in 72 hours (aerobically and anaerobically ) 05/08/18 16:15 Wound - Wrist Gram Stain - Final 05/08/18 16:15 Wound - Wrist Wound Culture - Final No growth in 72 hours (aerobically and anaerobically ) 05/08/18 16:20 Wound - Wrist Acid Fast Bacilli Smear - Final No acid fast bacilli seen 05/08/18 16:20 Wound - Wrist Mycobacterial Culture - Pending 05/08/18 16:15 Wound - Wrist Acid Fast Bacilli Smear - Final No acid fast bacilli seen 05/08/18 16:15 Wound - Wrist Mycobacterial Culture - Pending Lab - Chemistry Results 05/11/18 05/12/18 06:14 09:59 Creatinine 0.79 0.74 Estimated GFR 81 L 87 L Imaging: ITS Impressions Wrist CT 05/04/18 15:39 CONCLUSION: 1. Diffuse soft tissue swelling along the dorsum of the left wrist suggesting cellulitis. No underlying deep soft tissue abscess is noted. 2. Focal lucent defects are noted involving the distal radius which likely represent defects from previous hardware. If the patient has had no previous hardware in the radius these could represent post-traumatic defects. Wrist X-Ray 05/06/18 00:00 CONCLUSION: Possible fracture at the distal radial metaphyseal region. Extensive superficial soft tissue swelling. Wrist MRI 05/07/18 00:00 CONCLUSION: 1. There is concerning marrow signal and 2 superficial pockets of nonenhancement concern for soft tissue abscess. I don't see definite injury to any of the tendon sheaths and there is no significant enhancement within the tendon sheaths low-grade enhancement of the first dorsal compartment, extensor carpi ulnaris compartment and the extensor digitorum longus compartments. 2 serpiginous fluid collections along the suspected path of the bite are concerning for abscess Physical Exam: GENERAL: NAD SKIN: Warm and dry. no rash EYES: Pupils equal and round. No scleral icterus. No injection or drainage. RESPIRATORY: No accessory muscle use. Breathing unaloboured MUSCULOSKELETAL: Extremities without clubbing, cyanosis, or edema. L hand - dressing in place nno erythema prox to dressing NEUROLOGICAL: Awake and alert. Non focal. Normal speech. PSYCHIATRIC: Appropriate mood and affect; insight and judgment normal. Assessment and Plan - Plan Sp dog bite to L forearm, penetrating to the bone with 48 delay in seeking med attention Abscess, concern for early osteo Soft tissue swelling improved on empiric abx Low risk for rabies: pt's own dog, up to date on shots dw Dr Diamond: case referred to orhto 2/2 location of the fracture will need prolonged abx 2/2 bone involvement: 6 weeks Treatment can include: CFTX IV + oral clindamycin Or Levaquine 750 mg PO + clindamycin 450 tid - that Rx should cover eprirically Paterurella, anaerobs and staph, including most of CA-MRSA Unfortunetely high risk for side effects, including C.diff (both), tenosynovitis (levaquiner) and bone marrowe toxicity (clindamycin) Labs: CBC CMP weekly Dc after the above arranged
--- NOTE | 2018-05-12 17:37 | P.DS ---
DS: Providers Date of admission: 05/05/18 09:42 Primary care physician: PROVIDER NON STAFF Consults: 05/05/18 10:29 HUB Only Consult Order Routine Consulting Provider: [facility],Insurance 05/06/18 10:34 Consult to Hand Surgery Routine Consulting Provider: Kaya Diamond Reason for Consultation: Cellulitis Notified:: Service Spoke with:: ATIF Date Notified:: 05/06/18 Time Notified:: 10:38 Ordering Provider: KOLE 05/06/18 12:53 Consult to Orthopedic Surgery Routine Consulting Provider: Twila Jeffers Reason for Consultation: L distal radial fracture from dog bite Notified:: Service Spoke with:: OPAL Date Notified:: 05/06/18 Time Notified:: 13:02 Ordering Provider: KOLE 05/07/18 08:26 Consult to Infectious Diseases Routine Consulting Provider: Olena Howard Reason for Consultation: dog bite left wrist. MRI pending. ortho following. Notified:: Service Spoke with:: neftaly Date Notified:: 05/07/18 Time Notified:: 08:29 Ordering Provider: VÍCTOR Brief History from admission: 37 yo F with h/o previous back surgery who presented with lt hand/forearm swelling and redness after dog bite that happened 4 days ago. Patient was her dogs who were fighting and one of them bit her on the left forearm and leg. She did not seek medical attention because she was trying to control her pain at home. She noted increasing redness in the lt forearm and hand.Also reports excruciating pain, as such she cannot put her arm down. Has been having fever and chills as well. Her left leg also suffered a bite, but not deep and is minimally swollen. Her dogs are all up to date with vaccinations. ROS is negative except as stated above. On presentation to ER,patient had stable vitals, labs unremarkable, CT of left arm noted cellulitis without abscess formation. Patient received Vanc/Unaysn, Hydrocodone and Morphine. Patient was still c/o of pain at the time of this clinical evaluation. DS: Diagnosis Discharge Diagnosis (1) Fracture of left distal radius: Status: Acute DS: Summary his is a 37 yo female with h/o previous back surgery presenting with left forearm and hand cellulitis following a dog bite. Patient was admitted for Left hand osteomyelitis, Left hand cellulitis secondary to dog bite Abscess formation and distal radial fracture, CT scan of the wrist did not show any abscess. Wrist MRI: There is concerning marrow signal and 2 superficial pockets of nonenhancement concern for soft tissue abscess. I don't see definite injury to any of the tendon sheaths and there is no significant enhancement within the tendon sheaths low-grade enhancement of the first dorsal compartment, extensor carpi ulnaris compartment and the extensor digitorum longus compartments. 2 serpiginous fluid collections along the suspected path of the bite are concerning for abscess . Status post I&D of left wrist with orthopedic surgeon, wound culture sent. Wound wrist Culture: no growth in 72 hrs , fungal culture pending, mycobacterial culture pending, follow results. Orthopedic cleared patient to discharge home when cleared with infectious disease with, [employer] for cockup wrist splint left wrist, daily dressing changes with Xeroform, 4 x 4's and Vasu wrap to left wrist, and Nonweightbearing left wrist. Infectious disease recommendationwill need prolonged abx 2/2 bone involvement: 6 weeks Treatment can include: CFTX IV + oral clindamycin Or Levaquin 750 mg PO + clindamycin 450 tid. That Rx should cover eprirically Paterurella, anaerobs and staph, including most of CA-MRSA Unfortunetely high risk for side effects, including C.diff (both), tenosynovitis (levaquiner) and bone marrowe toxicity (clindamycin) Labs: CBC CMP weekly Discharge patient when the above antibiotics arranged. Patient will be discharged on oral Levaquin and clindamycin 3 times daily and follow-up blood works weekly with outpatient infusion clinic. Time Spent with Patient Total time spent providing and/or coordinating discharge services: Quality: VTE Deep Vein Thrombosis/Pulmonary Embolism Present on Admission: No Exam Narrative Exam Narrative: GENERAL: Well-developed, well-nourished, young female in no apparent distress SKIN: Warm and dry. HEAD: Atraumatic. Normocephalic. EYES: Pupils equal and round. No scleral icterus. No injection or drainage. ENT: No nasal bleeding or discharge. Mucous membranes pink and moist. NECK: Trachea midline. No JVD. CARDIOVASCULAR: Regular rate and rhythm. RESPIRATORY: No accessory muscle use. Clear to auscultation. Breath sounds equal bilaterally. GASTROINTESTINAL: Abdomen soft, non-tender, nondistended. Hepatic and splenic margins not palpable. MUSCULOSKELETAL: Extremities without clubbing, cyanosis,. Left wrist posterior and right lateral incisions with stitches, clean dry and intact, no redness no drainage. With dressing clean dry and intact, no drainage noted, positive sensation and range of motion in all fingers. No erythema or edema noted NEUROLOGICAL: Awake and alert. No obvious cranial nerve deficits. Motor grossly within normal limits. Five out of 5 muscle strength in the arms and legs except left wrist area with limited range of motion. Normal speech. PSYCHIATRIC: Appropriate mood and affect; insight and judgment normal. Results Labs on day of discharge: Labs from last 24 hours 05/12/18 09:59 Creatinine 0.74 Estimated GFR 87 L Impressions ITS Impressions Wrist CT 05/04/18 15:39 CONCLUSION: 1. Diffuse soft tissue swelling along the dorsum of the left wrist suggesting cellulitis. No underlying deep soft tissue abscess is noted. 2. Focal lucent defects are noted involving the distal radius which likely represent defects from previous hardware. If the patient has had no previous hardware in the radius these could represent post-traumatic defects. Wrist X-Ray 05/06/18 00:00 CONCLUSION: Possible fracture at the distal radial metaphyseal region. Extensive superficial soft tissue swelling. Wrist MRI 05/07/18 00:00 CONCLUSION: 1. There is concerning marrow signal and 2 superficial pockets of nonenhancement concern for soft tissue abscess. I don't see definite injury to any of the tendon sheaths and there is no significant enhancement within the tendon sheaths low-grade enhancement of the first dorsal compartment, extensor carpi ulnaris compartment and the extensor digitorum longus compartments. 2 serpiginous fluid collections along the suspected path of the bite are concerning for abscess Discharge Plan Discharge Disposition Patient Disposition: W/Home Health Service Discharge Condition Condition: Stable Discharge Order Discharge Orders: Discharge Order (Routine); Ordered 05/12/18 Ordered By: Becca Noble ED Use Only Admit Order (Routine); Ordered 05/04/18 Ordered By: Kira Hightower Discharge Details Discharge Comment: May discharge home with home health care when cleared with infectious disease, possibly on IV antibiotic Physicians Team ED Provider: Kira Hightower Primary Care Provider: NON STAFF,PROVIDER Attending Provider: Swapnil Weber Other Providers: [facility],Insurance ; Kaya Diamond ; Twila Jeffers ; Olena Howard ; Alex Forte Rxs /Orders / Referrals /Forms Prescriptions: New levofloxacin [Levaquin] 750 mg tablet 750 mg PO DAILY 42 Days Qty: 42 RF: 0 clindamycin HCl 150 mg capsule 450 mg PO TID 42 Days Qty: 378 RF: 0 Continue hydrocodone-acetaminophen 10-325 mg Tablet 2 tab PO Q6-8H PRN (Reason: Pain) RF: 0 oxycodone 10 mg Tablet 10 mg PO Q4-6H PRN (Reason: Pain) RF: 0 duloxetine 60 mg Capsule,Delayed Release(Dr/Ec) 60 mg PO DAILY RF: 0 Referrals: Jesus Manuel Houston MD [Family Provider] - See Instructions NON STAFF,PROVIDER [Primary Care Provider] - See Instructions Discharge Instructions Additional Instructions: Check CBC and CMP weekly x 6 weeks while on antibiotic at the outpatient infusion clinic send result to PCP Or to Dr. Fannie Weber Status ED Status: Left Department
--- NOTE | 2018-05-12 17:46 | P.DS ---
DS: Providers Date of admission: 05/05/18 09:42 Primary care physician: PROVIDER NON STAFF Consults: 05/05/18 10:29 HUB Only Consult Order Routine Consulting Provider: [employer] [facility],Insurance 05/06/18 10:34 Consult to Hand Surgery Routine Consulting Provider: Kaya Diamond Reason for Consultation: Cellulitis Notified:: Service Spoke with:: ATIF Date Notified:: 05/06/18 Time Notified:: 10:38 Ordering Provider: KOLE 05/06/18 12:53 Consult to Orthopedic Surgery Routine Consulting Provider: Twila Jeffers Reason for Consultation: L distal radial fracture from dog bite Notified:: Service Spoke with:: OPAL Date Notified:: 05/06/18 Time Notified:: 13:02 Ordering Provider: KOLE 05/07/18 08:26 Consult to Infectious Diseases Routine Consulting Provider: Olena Howard Reason for Consultation: dog bite left wrist. MRI pending. ortho following. Notified:: Service Spoke with:: neftaly Date Notified:: 05/07/18 Time Notified:: 08:29 Ordering Provider: VÍCTOR Anticipated date of discharge: 05/12/18 Brief History from admission: 37 yo F with h/o previous back surgery who presented with lt hand/forearm swelling and redness after dog bite that happened 4 days ago. Patient was her dogs who were fighting and one of them bit her on the left forearm and leg. She did not seek medical attention because she was trying to control her pain at home. She noted increasing redness in the lt forearm and hand.Also reports excruciating pain, as such she cannot put her arm down. Has been having fever and chills as well. Her left leg also suffered a bite, but not deep and is minimally swollen. Her dogs are all up to date with vaccinations. ROS is negative except as stated above. On presentation to ER,patient had stable vitals, labs unremarkable, CT of left arm noted cellulitis without abscess formation. Patient received Vanc/Unaysn, Hydrocodone and Morphine. Patient was still c/o of pain at the time of this clinical evaluation. DS: Diagnosis Discharge Diagnosis (1) Fracture of left distal radius: Status: Acute DS: Summary Time Spent with Patient Total time spent providing and/or coordinating discharge services: greater than 30 mins Quality: VTE Deep Vein Thrombosis/Pulmonary Embolism Present on Admission: No Results Labs on day of discharge: Labs from last 24 hours 05/12/18 09:59 Creatinine 0.74 Estimated GFR 87 L Impressions ITS Impressions Wrist CT 05/04/18 15:39 CONCLUSION: 1. Diffuse soft tissue swelling along the dorsum of the left wrist suggesting cellulitis. No underlying deep soft tissue abscess is noted. 2. Focal lucent defects are noted involving the distal radius which likely represent defects from previous hardware. If the patient has had no previous hardware in the radius these could represent post-traumatic defects. Wrist X-Ray 05/06/18 00:00 CONCLUSION: Possible fracture at the distal radial metaphyseal region. Extensive superficial soft tissue swelling. Wrist MRI 05/07/18 00:00 CONCLUSION: 1. There is concerning marrow signal and 2 superficial pockets of nonenhancement concern for soft tissue abscess. I don't see definite injury to any of the tendon sheaths and there is no significant enhancement within the tendon sheaths low-grade enhancement of the first dorsal compartment, extensor carpi ulnaris compartment and the extensor digitorum longus compartments. 2 serpiginous fluid collections along the suspected path of the bite are concerning for abscess Discharge Plan Discharge Disposition Patient Disposition: W/Home Health Service Discharge Condition Condition: Stable Discharge Order Discharge Orders: Discharge Order (Routine); Ordered 05/12/18 Ordered By: Becca Noble Discharge Details Discharge Comment: May discharge home with home health care when cleared with infectious disease, possibly on IV antibiotic Physicians Team Primary Care Provider: NON STAFF,PROVIDER Attending Provider: Swapnil Weber Other Providers: [facility],Insurance ; Kaya Diamond ; Twila Jeffers ; Olena Howard ; Alex Forte Rxs /Orders / Referrals /Forms Prescriptions: New levofloxacin [Levaquin] 750 mg tablet 750 mg PO DAILY 42 Days Qty: 42 RF: 0 clindamycin HCl 150 mg capsule 450 mg PO TID 42 Days Qty: 378 RF: 0 Continue hydrocodone-acetaminophen 10-325 mg Tablet 2 tab PO Q6-8H PRN (Reason: Pain) RF: 0 oxycodone 10 mg Tablet 10 mg PO Q4-6H PRN (Reason: Pain) RF: 0 duloxetine 60 mg Capsule,Delayed Release(Dr/Ec) 60 mg PO DAILY RF: 0 Referrals: Jesus Manuel Houston MD [Family Provider] - See Instructions NON STAFF,PROVIDER [Primary Care Provider] - See Instructions Discharge Instructions Additional Instructions: Check CBC and CMP weekly x 6 weeks while on antibiotic at the outpatient infusion clinic send result to PCP Or to Dr. Fannie Weber Status ED Status: Left Department
--- NOTE | 2018-05-12 17:53 | P.DCO ---
Diagnosis (1) Fracture of left distal radius: Status: Acute Home Health Nursing Order: Medical education, Signs/symptoms of disease process, Medication education-adverse effect and Wound care and dressing changes Instructions: Instruct patient to follow up with blood work every week while on antibiotic Case Management Consult Case Management Consult-Home Health: Yes (Please schedule for an outpatient blood work CBC, BMP weekly at the outpatient infusion clinic result to be sent to PCP or if no PCP may send to Dr. Gus Greco) I have seen patient Enedina Horn on 05/12/18. My clinical findings support the need for the requested home health care services because: I certify that my clinical findings support that this patient is homebound because:
[2018-05-15] MEDS ORDERED: Pharmacy Ordered Lab Info OTHER ONE (04:45)
== END 2018-05-12 18:57 | disposition home health service (06) | DRG 501 ==
LOC: PHEFT 14:28 → PHEDA 14:28 → PH3 19:50 → N07 05-08 10:05
PROVIDERS: ADMIT Hospitalist; ATTEND Hospitalist
CPT/HCPCS: 73110; 73201; 73223; 76937; 80048; 80053; 80202; 82565; 83735; 84703; 85025; 87015; 87040; 87070; 87102; 87116; 87205; 87206; 90471; 90658; 90686; 90765; 90766; 90775; 96365; 96366; 96375; 97161; 99285; A9585; G0008; G0378; J0295; J1170; J1580; J2270; J3010; J3370; J7040; J7050; J7120; L3825; L3908; Q2038; Q9967